=== PATIENT | male | born 1960 | race Caucasian/White ===

== ENCOUNTER 2017-02-01 16:40 | Inpatient (IN) | payer OTHER ==
[~2017-02-01] VITALS: Ht 185.4 cm; Wt 147.4 kg
[2017-02-01] VITALS (10 sets, daily range): BP systolic 110–176; BP diastolic 55–87; PULSE 82–120; RESP 15–22; TEMP 97.8–99.2; O2SAT 97–99
[~2017-02-01 16:40] MED LIST: ASPI81TA82 PO; BENI20TA26 PO; CODOIL PO; FISH1000 PO; GARL500C5 PO; HYDR10SO PO; OMEP20TA PO; PRAV40TA PO; TAB-TAB PO; TRIL135C PO; VIT250TA PO; ZOLP10TA3 PO
[2017-02-01] MEDS ORDERED: OMEP40CA2 PO (16:59)
[2017-02-01] MEDS ORDERED: LISI30TA4 PO (16:59)
[2017-02-01] MEDS ORDERED: SODIUM CHLORIDE 0.9% FLUSH 10 ML FLUSH IVF PRN (17:00)
[2017-02-01] MEDS ORDERED: SODIUM CHLORID 0.9% 500 ML INJ 500 ML IV ONE (17:00)
[2017-02-01] MEDS ORDERED: NITROGLYCERIN 2% OINT 1 GM PACKET TOP ONE (17:00)
[2017-02-01] MEDS ORDERED: MORPHINE SULFATE 4 MG/ML INJ IV PUSH ONE (17:00)
[2017-02-01] MEDS ORDERED: ASPIRIN 81 MG CHEW TAB PO ONE (17:00)
--- NOTE | 2017-02-01 17:10 | PD ---
HPI Chief Complaint: chest pain Time Seen by Provider: 16:52 Travel History International Travel<30 days: No Contact w/Intl Traveler<30days: No Traveled to known affect area: No History of Present Illness HPI 56-year-old male presents to emergency department after reportedly having a nuclear stress test at [facility]. He states he was told he could leave and then received a call from the facility stating that he had a positive stress test, and they recommended he be seen in the emergency department immediately so he came here. Patient states that he has been having intermittent chest pain and neck pain for the past several weeks. Patient is supposed to be taking aspirin daily but doesn't always take it, he also takes blood pressure medication and cholesterol medication. He states he has never had cardiac surgery or angiogram in the past. Patient states he was having neck pain after leaving the [facility] imaging, but currently states he feels somewhat short of breath and weak but otherwise is pain-free. He states both legs feel rubbery, and upper arms feel weak as well. He denies nausea, vomiting, heartburn or other constitutional symptoms. He is a smoker who is trying to quit. He has no known drug allergies. [facility] Social History Alcohol Use: Yes Tobacco Use: Yes Substance Use: No Allergies-Medications (Allergen,Severity, Reaction): Uncoded Allergies: NKDA (Allergy, 02/22/11) Reported Meds & Prescriptions Reported Meds & Active Scripts Active Reported Lisinopril 30 Mg Tab 30 Mg PO DAILY Omeprazole 40 Mg Cap 40 Mg PO DAILY Review of Systems Except as stated in HPI: all other systems reviewed are Neg General / Constitutional: No: Fever Eyes: No: Visual changes HENT: No: Headaches Cardiovascular: Positive: Chest Pain or Discomfort, Dyspnea on exertion, No: Tachycardia, Diaphoresis Respiratory: Positive: Shortness of Breath Gastrointestinal: No: Abdominal Pain Genitourinary: No: Dysuria Musculoskeletal: No: Pain Skin: No Rash Neurologic: No: Weakness Psychiatric: No: Depression Endocrine: No: Polydipsia Hematologic/Lymphatic: No: Easy Bruising Physical Exam Narrative GENERAL: Moderately obese patient in no obvious distress. SKIN: Warm and dry. Normal color. Normal turgor. No diaphoresis. HEAD: Atraumatic. Normocephalic. EYES: Pupils equal and round. No scleral icterus. No injection or drainage. ENT: No nasal bleeding or discharge. Mucous membranes pink and moist. Pharynx is clear. Airway is patent. NECK: Trachea midline. Supple and nontender. CARDIOVASCULAR: Regular rate and rhythm. No murmurs gallops or rubs appreciated. RESPIRATORY: No accessory muscle use. Clear to auscultation. Breath sounds equal bilaterally. GASTROINTESTINAL: Abdomen soft, non-tender, nondistended. Hepatic and splenic margins not palpable. MUSCULOSKELETAL: Extremities without clubbing, cyanosis, or edema. No obvious deformities. NEUROLOGICAL: Awake and alert. No obvious cranial nerve deficits. Motor grossly within normal limits. Five out of 5 muscle strength in the arms and legs. Normal speech. PSYCHIATRIC: Appropriate mood and affect; insight and judgment normal. Data Data Last Documented VS Vital Signs Date Time Temp Pulse Resp B/P (MAP) Pulse Ox O2 Delivery O2 Flow Rate FiO2 02/01/17 18:36 107 16 146/70 (95) 97 Nasal Cannula 2.00 02/01/17 17:53 98 02/01/17 16:43 99.2 Orders Orders Electrocardiogram (02/01/17 16:56) B-Type Natriuretic Peptide (02/01/17 16:56) Ckmb (Isoenzyme) Profile (02/01/17 16:56) Complete Blood Count With Diff (02/01/17 16:56) Comprehensive Metabolic Panel (02/01/17 16:56) Magnesium (Mg) (02/01/17 16:56) Prothrombin Time / Inr (Pt) (02/01/17 16:56) Act Partial Throm Time (Ptt) (02/01/17 16:56) Troponin I (02/01/17 16:56) Chest, Single Ap (02/01/17 16:56) Ecg Monitoring (02/01/17 16:56) Bilateral Bp Monitoring (02/01/17 16:56) Iv Access Insert/Monitor (02/01/17 16:56) Oximetry (02/01/17 16:56) Oxygen Administration (02/01/17 16:56) Aspirin Chew (Aspirin Chew) (02/01/17 17:00) Morphine Inj (Morphine Inj) (02/01/17 17:00) Nitroglycerin 2% Oint (Nitroglycerin 2% (02/01/17 17:00) Sodium Chloride 0.9% Flush (Ns Flush) (02/01/17 17:00) Sodium Chlorid 0.9% 500 Ml Inj (Ns 500 M (02/01/17 17:00) CKMB (02/01/17 17:15) CKMB% (02/01/17 17:15) Consult Cardiology (02/01/17 ) (Hub Use Only)Inp Phy Cons/Ref (02/01/17 ) Heparin Inj (Heparin Inj) (02/01/17 19:45) Heparin Inj (Heparin Inj) (02/02/17 01:45) Heparin Inj (Heparin Inj) (02/02/17 01:45) Heparin-D5w 25,000 U/250 Ml (Heparin-D5w (02/01/17 19:45) Cbc No Diff, Includes Plts (02/04/17 06:00) Act Partial Throm Time (Ptt) (02/02/17 02:32) Occult Blood (Hemoccult) Stool (02/01/17 19:32) Labs Laboratory Tests Test 02/01/17 17:15 White Blood Count 9.0 TH/MM3 Red Blood Count 5.17 MIL/MM3 Hemoglobin 14.0 GM/DL Hematocrit 41.9 % Mean Corpuscular Volume 81.1 FL Mean Corpuscular Hemoglobin 27.0 PG Mean Corpuscular Hemoglobin Concent 33.3 % Red Cell Distribution Width 15.6 % Platelet Count 292 TH/MM3 Mean Platelet Volume 7.3 FL Neutrophils (%) (Auto) 59.9 % Lymphocytes (%) (Auto) 25.3 % Monocytes (%) (Auto) 9.1 % Eosinophils (%) (Auto) 5.1 % Basophils (%) (Auto) 0.6 % Neutrophils # (Auto) 5.4 TH/MM3 Lymphocytes # (Auto) 2.3 TH/MM3 Monocytes # (Auto) 0.8 TH/MM3 Eosinophils # (Auto) 0.5 TH/MM3 Basophils # (Auto) 0.1 TH/MM3 CBC Comment DIFF FINAL Differential Comment Prothrombin Time 10.5 SEC Prothromb Time International Ratio 1.0 RATIO Activated Partial Thromboplast Time 26.4 SEC Blood Urea Nitrogen 13 MG/DL Creatinine 1.12 MG/DL Random Glucose 132 MG/DL Total Protein 7.7 GM/DL Albumin 3.4 GM/DL Calcium Level 8.8 MG/DL Magnesium Level 1.6 MG/DL Alkaline Phosphatase 98 U/L Aspartate Amino Transf (AST/SGOT) 23 U/L Alanine Aminotransferase (ALT/SGPT) 33 U/L Total Bilirubin 0.2 MG/DL Sodium Level 142 MEQ/L Potassium Level 3.6 MEQ/L Chloride Level 101 MEQ/L Carbon Dioxide Level 30.4 MEQ/L Anion Gap 11 MEQ/L Estimat Glomerular Filtration Rate 68 ML/MIN Total Creatine Kinase 316 U/L Creatine Kinase MB 2.0 NG/ML Creatine Kinase MB % 0.6 % Troponin I LESS THAN 0.02 NG/ML B-Type Natriuretic Peptide LESS THAN 2 PG/ML MDM Medical Decision Making Medical Screen Exam Complete: Yes Emergency Medical Condition: Yes Differential Diagnosis Atypical chest pain. Cardiac syndrome. Angina. SD. Narrative Course Patient appears medically stable at time of exam. EKG shows sinus tachycardia with nonspecific ST changes. Labs ordered including CBC, CMP, cardiac panel. Chest x-ray is ordered. IV access is obtained patient is given 324 mg aspirin by mouth, 1 inch nitroglycerin 2% pace, and 2 mg IV morphine, as well as 4 mg Zofran IV. [facility]. Chest x-ray shows no acute cardiopulmonary findings. CBC is unremarkable. Coagulation studies are unremarkable. CMP is remarkable for a GFR 68, random glucose 132, total creatinine kinase 318 , first troponin is less than 0.02, and proBNP is less than 2. Patient is discussed with Dr. Shook who also recommends speaking to the wood tank builder on-call. The patient was discussed with Dr. Parson's who recommends inpatient admission, and possible catheterization in the morning. Call was placed to hospitalist, and the patient was discussed with Dr. Mcintyre, who agreed to admit the patient Heparin bolus and drip was ordered. Diagnosis Primary Impression: Chest pain due to myocardial ischemia Qualified Codes: I20.9 - Angina pectoris, unspecified Admitting Information Admitting Physician Requests: Admit Condition: Stable Haim Hartman Feb 01, 2017 17:10
[2017-02-01 17:25] LABS: AUTOMATED NEUTROPHIL # 5.4 TH/MM3 (1.8-7.7); BASOPHIL # 0.1 TH/MM3 (0-0.2); BASOPHIL % 0.6 % (0.0-2.0); EOSINOPHIL # 0.5 TH/MM3 (0-0.4); EOSINOPHIL % 5.1 % (0.0-4.0); HEMATOCRIT 41.9 % (39.0-51.0); HEMO FLAGS DIFF FINAL; LYMPH % 25.3 % (9.0-44.0); LYMPHOCYTE # 2.3 TH/MM3 (1.0-4.8); MEAN CELL VOLUME 81.1 FL (80.0-100.0); MEAN CORPUSCULAR HGB CONC 33.3 % (32.0-36.0); MONO % 9.1 % (0.0-8.0); NEUT % 59.9 % (16.0-70.0); PLATELET COUNT 292 TH/MM3 (150-450); RED BLOOD COUNT 5.17 MIL/MM3 (4.50-5.90); RED CELL DISTRIBUTION WIDTH 15.6 % (11.6-17.2)
[2017-02-01 17:36] LABS: APTT (PATIENT) 26.4 SEC (24.3-30.1); PROTHROMBIN TIME - PATIENT 10.5 SEC (9.8-11.6)
[2017-02-01 17:47] LABS: ALT (GPT) 33 U/L (12-78); ANION GAP 11 MEQ/L (5-15); AST (GOT) 23 U/L (15-37); BICARBONATE 30.4 MEQ/L (21.0-32.0); BLOOD UREA NITROGEN 13 MG/DL (7-18); CHLORIDE 101 MEQ/L (98-107); GLOMERULAR FILTRATION RATE 68 ML/MIN (>89); MAGNESIUM 1.6 MG/DL (1.5-2.5); POTASSIUM 3.6 MEQ/L (3.5-5.1); SODIUM (NA) 142 MEQ/L (136-145)
[2017-02-01 17:51] LABS: ALKALINE PHOSPHATASE 98 U/L (45-117); CREATINE KINASE 316 U/L (39-308); TOTAL BILIRUBIN ADULT 0.2 MG/DL (0.2-1.0)
--- NOTE | 2017-02-01 17:53 | RADRPT ---
EXAM DATE/TIME: 02/01/2017 17:24 [place] COMPARISON: No previous studies available for comparison. INDICATIONS : Chest pain. MEDICAL HISTORY : None. SURGICAL HISTORY : None. ENCOUNTER: Initial ACUITY: 1 day PAIN SCORE: 5/10 LOCATION: chest FINDINGS: A single view of the chest demonstrates the lungs to be symmetrically aerated without evidence of mas s, infiltrate or effusion. The cardiomediastinal contours are unremarkable. Osseous structures are intact. CONCLUSION: 1. No acute cardiopulmonary findings. Dougie Nolasco MD on February 01, 2017 at 17:50 Board Certified Radiologist. This report was verified electronically.
--- NOTE | 2017-02-01 19:35 | HHI.HP ---
[facility] Admission Diagnosis Diagnoses: (1) ACS (acute coronary syndrome) Diagnosis: Principal (2) Chest pain Diagnosis: Principal (3) Dehydration Diagnosis: Principal (4) Rhabdomyolysis Diagnosis: Principal (5) HTN (hypertension) Diagnosis: Principal (6) Tobacco abuse Diagnosis: Principal Travel History International Travel<30 Days: No Contact w/Intl Traveler <30 Da: No Traveled to Known Affected Are: No History of Present Illness This is a 56-year-old male w/ a PMH of HTN, COPD and Tobacco Abuse who was referred to the ER by DC secondary to abnormal Stress Test. States he's been having c/o intermittent chest pain for several weeks. Seen at the DC in [facility], s/p Stress Test, called w/ abnormal results and instructed to go to the ER. Reports occasional SOB associated w/ chest pain. On arrival, BP 141/63, HR 120, O2 sat 97% on RA, Temp 99.2. CBC unremarkable. Vern unremarkable except for GFR 68. Troponin negative. CPK 316. INR 1.0. CXR with no acute findings. Dr. Mccall consulted by ER physician, recommended admission for further cardiac intervention. Review of Systems Except as stated in HPI: all other systems reviewed are Neg ROS: 14 point review of systems otherwise negative. Past Family Social History Past Medical History PMH: HTN, COPD and Tobacco Abuse Past Surgical History PAST SURGICAL HISTORY: Appendectomy, Cholecystectomy, Right Knee Surgery Allergies: Uncoded Allergies: NKDA (Allergy, Unknown, 02/01/17) Family History PAST FAMILY HISTORY: Reviewed. No h/o DM or CAD Social History PAST SOCIAL HISTORY: Occasional alcohol. Positive for tobacco. Negative for drugs. Physical Exam Vital Signs Vital Signs Date Time Temp Pulse Resp B/P (MAP) Pulse Ox O2 Delivery O2 Flow Rate FiO2 02/01/17 18:36 107 16 146/70 (95) 97 Nasal Cannula 2.00 02/01/17 17:55 112 15 147/70 (95) 02/01/17 17:53 101 15 158/80 (106) Nasal Cannula 2.00 98 11/17/17 17:03 102 16 176/85 (115) 97 Nasal Cannula 2.00 02/01/17 17:03 82 16 153/70 (97) 98 Nasal Cannula 2.00 176/85 (115) 02/01/17 17:03 97 Nasal Cannula 2.00 02/01/17 17:03 103 16 98 Nasal Cannula 2.00 02/01/17 17:00 82 16 97 02/01/17 16:43 99.2 120 22 141/63 (89) 97 Physical Exam PE: GENERAL: Middle-aged male in no acute distress. HEENT: PERRLA, EOMI. No scleral icterus or conjunctival pallor. No lid lag or facial droop. CARDIOVASCULAR: Regular rate and rhythm. No obvious murmurs to auscultation. No chest tenderness to palpation. RESPIRATORY: No obvious rhonchi or wheezing. Clear to auscultation. Breath sounds equal bilaterally. GASTROINTESTINAL: Abdomen soft, non-tender, nondistended. BS normal. MUSCULOSKELETAL: Extremities without clubbing, cyanosis, or edema. No obvious deformities. NEUROLOGICAL: Awake, alert and oriented x4. No focal neurologic deficits. Moving both upper and lower extremities spontaneously. Laboratory Laboratory Tests Test 02/01/17 17:15 White Blood Count 9.0 Red Blood Count 5.17 Hemoglobin 14.0 Hematocrit 41.9 Mean Corpuscular Volume 81.1 Mean Corpuscular Hemoglobin 27.0 Mean Corpuscular Hemoglobin Concent 33.3 Red Cell Distribution Width 15.6 Platelet Count 292 Mean Platelet Volume 7.3 Neutrophils (%) (Auto) 59.9 Lymphocytes (%) (Auto) 25.3 Monocytes (%) (Auto) 9.1 Eosinophils (%) (Auto) 5.1 Basophils (%) (Auto) 0.6 Neutrophils # (Auto) 5.4 Lymphocytes # (Auto) 2.3 Monocytes # (Auto) 0.8 Eosinophils # (Auto) 0.5 Basophils # (Auto) 0.1 CBC Comment DIFF FINAL Differential Comment Prothrombin Time 10.5 Prothromb Time International Ratio 1.0 Activated Partial Thromboplast Time 26.4 Blood Urea Nitrogen 13 Creatinine 1.12 Random Glucose 132 Total Protein 7.7 Albumin 3.4 Calcium Level 8.8 Magnesium Level 1.6 Alkaline Phosphatase 98 Aspartate Amino Transf (AST/SGOT) 23 Alanine Aminotransferase (ALT/SGPT) 33 Total Bilirubin 0.2 Sodium Level 142 Potassium Level 3.6 Chloride Level 101 Carbon Dioxide Level 30.4 Anion Gap 11 Estimat Glomerular Filtration Rate 68 Total Creatine Kinase 316 Creatine Kinase MB 2.0 Creatine Kinase MB % 0.6 Troponin I LESS THAN 0.02 B-Type Natriuretic Peptide LESS THAN 2 Result Diagram: 02/01/17171402/01/171714 Caprini VTE Risk Assessment Caprini VTE Risk Assessment: Mod/High Risk (score >= 2) Caprini Risk Assessment Model Point Value = 1 Point Value = 2 Point Value = 3 Point Value = 5 Age 41-60 Minor surgery BMI > 25 kg/m2 Swollen legs Varicose veins or History of unexplained or recurrent spontaneous Oral contraceptives or hormone replacement Sepsis (< 1 month) Serious lung disease, including pneumonia (< 1 month) Abnormal pulmonary function Acute myocardial infarction Congestive heart failure (< 1 month) History of inflammatory bowel disease Medical patient at bed rest Age 61-74 Arthroscopic surgery Major open surgery (> 45 min) Laparoscopic surgery (> 45 min) Malignancy Confined to bed (> 72 hours) Immobilizing plaster cast Central venous access Age >= 75 History of VTE Family history of VTE Factor V Leiden Prothrombin [id number] Lupus anticoagulant Anticardiolipin antibodies Elevated serum homocysteine Heparin-induced thrombocytopenia Other congenital or acquired thrombophilia Stroke (< 1 month) Elective arthroplasty Hip, pelvis, or leg fracture Acute spinal cord injury (< 1 month) Prophylaxis Regimen Total Risk Factor Score Risk Level Prophylaxis Regimen 0-1 Low Early ambulation 2 Moderate Order ONE of the following: *Sequential Compression Device (SCD) *Heparin 5000 units SQ BID 3-4 Higher Order ONE of the following medications: *Heparin 5000 units SQ TID *Enoxaparin/Lovenox 40 mg SQ daily (WT < 150 kg, CrCl > 30 mL/min) *Enoxaparin/Lovenox 30 mg SQ daily (WT < 150 kg, CrCl > 10-29 mL/min) *Enoxaparin/Lovenox 30 mg SQ BID (WT < 150 kg, CrCl > 30 mL/min) AND/OR *Sequential Compression Device (SCD) 5 or more Highest Order ONE of the following medications: *Heparin 5000 units SQ TID (Preferred with Epidurals) *Enoxaparin/Lovenox 40 mg SQ daily (WT < 150 kg, CrCl > 30 mL/min) *Enoxaparin/Lovenox 30 mg SQ daily (WT < 150 kg, CrCl > 10-29 mL/min) *Enoxaparin/Lovenox 30 mg SQ BID (WT < 150 kg, CrCl > 30 mL/min) AND *Sequential Compression Device (SCD) Assessment and Plan Problem List: (1) ACS (acute coronary syndrome) ICD Code: I24.9 - Acute ischemic heart disease, unspecified (2) Chest pain ICD Code: R07.9 - Chest pain, unspecified (3) Rhabdomyolysis ICD Code: M62.82 - Rhabdomyolysis (4) Dehydration ICD Code: E86.0 - Dehydration (5) HTN (hypertension) ICD Code: I10 - Essential (primary) hypertension (6) Tobacco abuse ICD Code: Z72.0 - Tobacco use Assessment and Plan A/P: 1. ACS: outpatient Stress Test at [facility] abnormal, pending records, referred to ER for further eval. Initial trop negative, EKG w/ no acute ischemia. Admit to [facility], check serial cardiac enzymes, ASA, Heparin, B-Devendra, Statin. Dr. Mccall consulted by ER physician will eval for further intervention. 2. Chest Pain: Intermittent. Currently chest pain free. NTG/Morphine as needed. CXR w/ no acute findings, images reviewed by me. 3. Rhabdomyolysis: Mild. CPK 316. IVF for hydration, repeat CPK for trend. 4. Dehydration: GFR 68. BUN/Creat normal. IVF for hydration, repeat labs in am. 5. HTN: BP 150-170's while in ER, monitor BP, resume home medications, add Metoprolol. 6. Tobacco Abuse: Pt counselled. Ativan prn if needed. No NicoDerm to avoid vasoconstriction. 7. DVT Prophylaxis: Heparin gtt 8. Social work for d/c planning as needed. 9. Case discussed w/ ER physician at length. Physician Certification 2 Midnight Certification Type: Admission for Inpatient Services Order for Inpatient Services The services are ordered in accordance with Medicare regulations or non- Medicare payer requirements, as applicable. In the case of services not specified as inpatient-only, they are appropriately provided as inpatient services in accordance with the 2-midnight benchmark. Estimated LOS (days): 2 days is the estimated time the patient will need to remain in the hospital, assuming treatment plan goals are met and no additional complications. Post-Hospital Plan: Not yet determined Sury Mcintyre MD Feb 01, 2017 19:35
[2017-02-01] MEDS ORDERED: BISACODYL 10 MG SUPP RECTAL PRN (19:45)
[2017-02-01] MEDS ORDERED: HEPARIN SODIUM - IV 10,000 UNITS/10 ML VIAL IV PUSH ONE (19:45)
[2017-02-01] MEDS ORDERED: MAGNESIUM HYDROXIDE SUSP 30 ML CUP PO PRN (19:45)
[2017-02-01] MEDS ORDERED: ACETAMINOPHEN 325 MG TAB PO PRN (19:45)
[2017-02-01] MEDS ORDERED: SODIUM CHLORIDE 0.9% FLUSH 10 ML FLUSH IV FLUSH PRN (19:45)
[2017-02-01] MEDS ORDERED: SENNOSIDES 8.6 MG TAB PO PRN (19:45)
[2017-02-01] MEDS ORDERED: LACTULOSE SYRUP 20 GM/30 ML CUP PO PRN (19:45)
[2017-02-01] MEDS ORDERED: ONDANSETRON HCL 4 MG/2 ML VIAL IVP PRN (19:45)
[2017-02-01] MEDS: SODIUM CHLOR 0.9% 1000 ML INJ 1,000 ML IV SCH (20:16)
[2017-02-01] MEDS: HEPARIN-D5W 25,000 U/250 ML 250 ML IV PRN (20:53)
[2017-02-01] MEDS: SODIUM CHLORIDE 0.9% FLUSH 10 ML FLUSH IV FLUSH SCH (21:00)
[2017-02-01] MEDS: ACETAMINOPHEN/HYDROcodone 325 MG/5 MG TAB PO PRN (21:45)
[2017-02-01] MEDS: METOPROLOL TARTRATE 25 MG TAB PO SCH (22:24)
[2017-02-02] VITALS (24 sets, daily range): BP systolic 108–158; BP diastolic 66–96; PULSE 68–104; RESP 18–20; TEMP 97.4–98.5; O2SAT 96–99
[2017-02-02 01:16] LABS: CREATINE KINASE 263 U/L (39-308)
[2017-02-02] MEDS ORDERED: HEPARIN SODIUM - IV 10,000 UNITS/10 ML VIAL IV PUSH PRN (01:45)
[2017-02-02 03:44] LABS: AUTOMATED NEUTROPHIL # 3.9 TH/MM3 (1.8-7.7); BASOPHIL # 0.1 TH/MM3 (0-0.2); BASOPHIL % 0.9 % (0.0-2.0); EOSINOPHIL # 0.6 TH/MM3 (0-0.4); EOSINOPHIL % 7.1 % (0.0-4.0); HEMATOCRIT 37.3 % (39.0-51.0); HEMO FLAGS DIFF FINAL; LYMPH % 33.8 % (9.0-44.0); LYMPHOCYTE # 2.6 TH/MM3 (1.0-4.8); MEAN CELL VOLUME 81.3 FL (80.0-100.0); MEAN CORPUSCULAR HEMOGLOBIN 27.3 PG (27.0-34.0); MEAN CORPUSCULAR HGB CONC 33.5 % (32.0-36.0); MONO % 7.8 % (0.0-8.0); NEUT % 50.4 % (16.0-70.0); PLATELET COUNT 243 TH/MM3 (150-450); RED BLOOD COUNT 4.59 MIL/MM3 (4.50-5.90); RED CELL DISTRIBUTION WIDTH 15.3 % (11.6-17.2); WHITE BLOOD COUNT 7.8 TH/MM3 (4.0-11.0)
[2017-02-02 03:55] LABS: APTT (PATIENT) 26.8 SEC (24.3-30.1)
[2017-02-02 04:18] LABS: ALKALINE PHOSPHATASE 81 U/L (45-117); ALT (GPT) 31 U/L (12-78); ANION GAP 8 MEQ/L (5-15); AST (GOT) 18 U/L (15-37); BICARBONATE 26.5 MEQ/L (21.0-32.0); BLOOD UREA NITROGEN 15 MG/DL (7-18); CHLORIDE 104 MEQ/L (98-107); CREATINE KINASE 253 U/L (39-308); GLOMERULAR FILTRATION RATE 95 ML/MIN (>89); POTASSIUM 3.7 MEQ/L (3.5-5.1); SODIUM (NA) 138 MEQ/L (136-145); TOTAL BILIRUBIN ADULT 0.2 MG/DL (0.2-1.0)
[2017-02-02] MEDS: HEPARIN SODIUM - IV 10,000 UNITS/10 ML VIAL IV PUSH PRN ×3 (05:20→22:31)
[2017-02-02] MEDS: SODIUM CHLOR 0.9% 1000 ML INJ 1,000 ML IV SCH (05:31)
[2017-02-02] MEDS: PANTOPRAZOLE SOD 40 MG DELAYED RELEASE TAB PO SCH (08:39)
[2017-02-02] MEDS: LISINOPRIL 10 MG TAB PO SCH (08:40)
[2017-02-02] MEDS: METOPROLOL TARTRATE 25 MG TAB PO SCH ×2 (08:40→21:16)
[2017-02-02] MEDS: SODIUM CHLORIDE 0.9% FLUSH 10 ML FLUSH IV FLUSH SCH ×2 (08:41→21:17)
[2017-02-02] MEDS: DOCUSATE SODIUM 50 MG/SENNA 8.6 MG TAB PO SCH ×2 (08:42→21:16)
[2017-02-02] MEDS ORDERED: PRAVASTATIN SOD 40 MG TAB PO SCH (09:00)
[2017-02-02] MEDS ORDERED: ASPIRIN EC 81 MG TABEC PO SCH (09:00)
--- NOTE | 2017-02-02 09:12 | EKG ---
Date Performed: 02/01/2017 Time Performed: 16:54:27 PTAGE: 56 years EKG: SINUS TACHYCARDIA LOW QRS VOLTAGE IN PRECORDIAL LEADS ABNORMAL RHYTHM ECG NO PREVIOUS TRACING DOCTOR: Rogelio White Interpretating Date/Time 02/02/2017 09:10:49
[2017-02-02] MEDS ORDERED: IOHEXOL 350 MG/ML 10 ML VIAL (for RAD DIAG) IVCONTRAST ONE (10:40)
--- NOTE | 2017-02-02 12:30 | HHI.PR ---
Subjective Remarks This patient is a 56-year-old gentleman that outpatient stress test completed and the results were abnormal. He was instructed to come to the hospital by his verify rep at the [facility]. Patient has intermittent chest discomfort which is improved with rest. He smokes at least a pack a day, he has multiple uncles with premature cardiac disease He has been admitted to the hospital for further evaluation Objective Vitals Vital Signs Date Time Temp Pulse Resp B/P (MAP) Pulse Ox O2 Delivery O2 Flow Rate FiO2 02/02/17 10:00 79 02/02/17 09:05 86 02/02/17 08:00 89 02/02/17 07:15 98.1 97 18 108/66 (80) 97 02/02/17 07:00 80 02/02/17 04:44 98.5 74 18 156/94 (114) 99 02/02/17 04:00 78 02/02/17 03:00 77 02/02/17 02:00 70 02/02/17 01:00 78 02/02/17 00:00 78 02/01/17 23:23 98.5 97 18 110/55 (73) 99 02/01/17 23:00 91 02/01/17 22:24 96 18 165/67 (99) 96 Nasal Cannula 2.00 02/01/17 19:10 97.8 102 20 155/87 (109) 97 Nasal Cannula 2.00 02/01/17 19:10 17 02/01/17 18:36 107 16 146/70 (95) 97 Nasal Cannula 2.00 02/01/17 17:55 112 15 147/70 (95) 02/01/17 17:53 101 15 158/80 (106) Nasal Cannula 2.00 98 02/01/17 17:03 102 16 176/85 (115) 97 Nasal Cannula 2.00 02/01/17 17:03 82 16 153/70 (97) 98 Nasal Cannula 2.00 176/85 (115) 02/01/17 17:03 97 Nasal Cannula 2.00 02/01/17 17:03 103 16 98 Nasal Cannula 2.00 02/01/17 17:00 82 16 97 02/01/17 16:43 99.2 120 22 141/63 (89) 97 I/O 02/01/17 02/01/17 02/01/17 02/02/1702/02/17 11/18/17 07:00 15:00 23:00 07:00 15:00 23:00 Intake Total 500 ml Output Total 250 ml Balance 500 ml -250 ml Intake IV Total 500 ml Output Urine Total 250 ml Chest Tube Drainage Total 0 ml Result Diagram: 02/02/17 0315 02/02/17 0315 Imaging Last Impressions Chest X-Ray 02/01/17 1656 Signed Impressions: Service Date/Time: Wednesday, February 01, 2017 17:24 - CONCLUSION: 1. No acute cardiopulmonary findings. Dougie Nolasco MD Objective Remarks GENERAL: This is a well-nourished, well-developed patient, in no apparent distress. CARDIOVASCULAR: Regular rate and rhythm without murmurs, gallops, or rubs. RESPIRATORY: Clear to auscultation. Breath sounds equal bilaterally. No wheezes , rales, or rhonchi. GASTROINTESTINAL: Abdomen soft, non-tender, nondistended. Normal active bowel sounds MUSCULOSKELETAL: Extremities without clubbing, cyanosis, or edema. NEURO: Alert & Oriented x4 to person, place, time, situation. Moves all ext x4 A/P Problem List: (1) ACS (acute coronary syndrome) ICD Code: I24.9 - Acute ischemic heart disease, unspecified Plan: Patient with abnormal outpatient stress test Likely for cardiac catheterization on Saturday Continue medical management with aspirin, bb, acei, morphine, oxygen, statin, tobacco cessation encouraged Lifestyle modification (2) Chest pain ICD Code: R07.9 - Chest pain, unspecified Plan: May be angina in nature Will follow-up with cardiac catheterization as patient has already had an abnormal stress test (3) Rhabdomyolysis ICD Code: M62.82 - Rhabdomyolysis Plan: Resolved with adequate hydration (4) HTN (hypertension) ICD Code: I10 - Essential (primary) hypertension Plan: continue metoprolol Continue lisinopril for now (5) Leg pain ICD Code: M79.606 - Pain in leg, unspecified Plan: Possibly ischemic in nature, patient with abnormal JIMY Follow-up CTA with runoff Continue aspirin Amarilys Murphy MD Feb 02, 2017 12:30
--- NOTE | 2017-02-02 12:49 | MB ---
cc: ANAND PINA MD DATE OF CONSULTATION: 02/02/2017 REASON FOR CONSULTATION: Chest pain, abnormal stress test. HISTORY OF PRESENT ILLNESS The patient is a very pleasant 56-hour gentleman who is seen at the [facility] who has a history of tobacco abuse, obesity and chest pain. The patient has been complaining of chest pain and lower extremity weakness with pain in his legs while walking over the last several months. He has been somewhat non compliant with the [facility]'s instructions but finally had a stress test done which was mildly abnormal and thus he was sent to the hospital. He has no chest pain currently but had some chest pain yesterday and this has been having intermittently describes a general pressure in the middle of the chest but somewhat vague about the details. He is currently asymptomatic denying any residual chest pain, shortness breath, lightheadedness, dizziness. PAST MEDICAL HISTORY Hypertension Obesity Tobacco abuse. CURRENT MEDICATIONS 1. Aspirin milligrams daily. 2. Pravachol 40 mg a. 3. Lisinopril 30 mg daily. 4. Protonix 40 mg daily. 5. Heparin drip. 6. Lopressor 25 mg q. 12 with. ALLERGIES NO KNOWN DRUG ALLERGIES. PHYSICAL EXAMINATION VITAL SIGNS: Afebrile, pulse 86, respiratory rate 18, BP 108/66 satting 97% on 2 liters. IN GENERAL: Pleasant obese gentleman in no distress. NECK: No JVD. LUNGS: Clear auscultation bilaterally. CARDIOVASCULAR SYSTEM: Regular rate and rhythm. No significant murmurs appreciated. ABDOMEN: Benign. EXTREMITIES: No edema. Pulses are slightly diminished pedal Damian LABORATORY DATA Sodium 38,002.7514, bicarb 26.5, BUN 15, creatinine 0.84, glucose 114, cardiac enzymes are negative x3. INR is 1.0, white count 7.8, hematocrit 37.3, platelets 243. Nuclear stress test performed at the [facility] showed a small partially reversible anterior perfusion defect. AV high performed at the [facility] showed borderline severe peripheral vascular disease. EKG shows sinus rhythm with nonspecific ST changes. IMPRESSION 1. Chest pain with abnormal stress test. His stress test is not terribly impressive but he certainly has risk factors and I suspect he does have significant coronary disease despite the unimpressive stress test. I have discussed this with Dr. Mccall who plans for heart cath on Saturday, or sooner should his clinical condition change. We will keep on heparin drip and other medical therapy for coronary disease. 2. Peripheral arterial disease. The patient likely has severe PAD. I will have him undergo a CTA aorta with runoff to evaluate for that as well. 3. Obesity and tobacco abuse are likely major contributors the above and I have counseled him at length regarding these issues. Further recommendations based on his clinical course. Thank you again for the opportunity to participate this patient's care this dictation MD AUGUSTIN Duran/natalie /9:53 AM /12:49 PM
[2017-02-02 12:54] LABS: APTT (PATIENT) 27.1 SEC (24.3-30.1)
--- NOTE | 2017-02-02 16:09 | EKG ---
Date Performed: 02/02/2017 Time Performed: 03:15:50 PTAGE: 56 years EKG: Sinus rhythm Lateral T wave changes are nonspecific Compared to previous tracing, nonspecific T wave changes have improved Borderline ECG PREVIOUS TRACING : 02/01/2017 22.45 DOCTOR: Rogelio White Interpretating Date/Time 02/02/2017 16:09:00
--- NOTE | 2017-02-02 16:09 | EKG ---
Date Performed: 02/01/2017 Time Performed: 22:45:28 PTAGE: 56 years EKG: Sinus tachycardia Possible anterior infarct - age undetermined Low QRS voltages in precordi al leads Nonspecific T wave changes, which are new compared to previous tracing Abnormal ECG PREVIOUS TRACING : 02/01/2017 16.54 DOCTOR: Rogelio White Interpretating Date/Time 02/02/2017 16:08:44
--- NOTE | 2017-02-02 16:15 | RADRPT ---
EXAM DATE/TIME: 02/02/2017 10:26 [place] COMPARISON: No previous studies available for comparison. INDICATIONS : Lower extremity pain; evaluate for occlusion. IV CONTRAST: 75 cc Omnipaque 350 (iohexol) IV RADIATION DOSE: 11.28 CTDIvol (mGy) MEDICAL HISTORY : Hypertension. SURGICAL HISTORY : Appendectomy. Cholecystectomy. ENCOUNTER: Initial ACUITY: 1 day PAIN SCALE: 5/10 LOCATION: Bilateral lower extrimety. TECHNIQUE: Volumetric scanning was performed using a multi-row detector CT scanner. The data was post processed with a variety of visualization algorithms including full volume maximum intensity projection, multi -planar sliding thin slab reformation, curved planar reformation, and surface rendering techniques. Using automated exposure control and adjustment of the mA and/or kV according to patient size, radiat ion dose was kept as low as reasonably achievable to obtain optimal diagnostic quality images. DICO M format image data is available electronically for review and comparison. FINDINGS: ABDOMINAL AORTA: The lumen is smooth without significant narrowing or aneurysmal dilation. The proximal celiac and jackson perior mesenteric arteries are patent and normal in diameter. Calcific plaquing is noted at the origi n of the celiac artery and hepatic artery which arises directly off the aortic arch. Scattered athero sclerotic calcification of the aorta is noted. There are solitary renal arteries bilaterally without gross abnormality. BIFURCATION: There is severe focal stenosis at the origin of the right common iliac artery and moderate to severe stenosis at the origin of the left common iliac artery. RIGHT PELVIS: The right internal iliac, and external iliac vessels are patent with scattered atherosclerotic calcif ications. LEFT PELVIS: The left internal iliac, and external iliac vessels are patent with scattered atherosclerotic calcifi cations. RIGHT THIGH: The superficial femoral and profunda vessels are patent without luminal irregularity. Scattered calci fic plaquing of the superficial femoral artery. LEFT THIGH: The superficial femoral and profunda vessels are patent without luminal irregularity. Scattered calci fic plaquing of the superficial femoral artery. RIGHT KNEE: The distal femoral and popliteal arteries are patent without luminal irregularity. LEFT KNEE: The distal femoral and popliteal arteries are patent without luminal irregularity. RIGHT LEG: The trifurcation is intact. LEFT LEG: The trifurcation is intact. CONCLUSION: 1. Severe stenosis at the origin of the right common iliac artery and moderate to severe stenosis at the origin of the left common iliac artery. 2. Otherwise no high-grade stenosis is seen. 3. Incidental note is made of hepatic steatosis. Sridhar Conway MD on February 02, 2017 at 16:09 Board Certified Radiologist. This report was verified electronically.
[2017-02-02] MEDS: ACETAMINOPHEN/HYDROcodone 325 MG/5 MG TAB PO PRN ×2 (19:47→23:56)
[2017-02-02] MEDS: HEPARIN-D5W 25,000 U/250 ML 250 ML IV PRN (19:55)
[2017-02-02 21:24] LABS: APTT (PATIENT) 28.7 SEC (24.3-30.1)
[2017-02-03] VITALS (24 sets, daily range): BP systolic 147–164; BP diastolic 84–93; PULSE 65–98; RESP 18–22; TEMP 97.3–98.3; O2SAT 97–98
[2017-02-03] MEDS: ACETAMINOPHEN/HYDROcodone 325 MG/5 MG TAB PO PRN ×4 (03:50→21:09)
[2017-02-03 07:33] LABS: BICARBONATE 25.8 MEQ/L (21.0-32.0); POTASSIUM 3.9 MEQ/L (3.5-5.1)
[2017-02-03 08:11] LABS: APTT (PATIENT) 28.7 SEC (24.3-30.1)
[2017-02-03] MEDS: SODIUM CHLORIDE 0.9% FLUSH 10 ML FLUSH IV FLUSH SCH ×2 (09:00→20:03)
[2017-02-03] MEDS: HEPARIN SODIUM - IV 10,000 UNITS/10 ML VIAL IV PUSH PRN ×2 (09:35→18:51)
[2017-02-03] MEDS: METOPROLOL TARTRATE 25 MG TAB PO SCH ×2 (09:36→20:03)
[2017-02-03] MEDS: ATORVASTATIN 40 MG TAB PO SCH (09:36)
[2017-02-03] MEDS: ASPIRIN 325 MG TAB PO SCH (09:36)
[2017-02-03] MEDS: DOCUSATE SODIUM 50 MG/SENNA 8.6 MG TAB PO SCH ×2 (09:36→20:03)
[2017-02-03] MEDS: PANTOPRAZOLE SOD 40 MG DELAYED RELEASE TAB PO SCH (09:36)
[2017-02-03] MEDS: LISINOPRIL 10 MG TAB PO SCH (09:38)
--- NOTE | 2017-02-03 09:49 | PD.CARD.PN ---
Subjective Subjective Remarks Pt c/o back and leg pain, no cp Objective Medications Current Medications Medications (Trade) Dose Ordered Sig/Zohra Route Start Time Stop Time Status Last Admin (Heparin Inj) 5,000 units UNSCH PRN IV PUSH 02/02/17 01:45 (Heparin Inj) 2,500 units UNSCH PRN IV PUSH 02/02/17 01:45 02/03/17 09:35 Heparin Sodium/ Dextrose 250 ml @ 10 mls/hr TITRATE PRN IV 02/01/17 19:45 02/02/17 19:55 (Lopressor) 25 mg Q12HR PO 02/01/17 21:00 02/03/17 09:36 (NS Flush) 2 ml UNSCH PRN IV FLUSH 02/01/17 19:45 (NS Flush) 2 ml BID IV FLUSH 02/01/17 21:00 02/03/17 09:00 (Zofran Inj) 4 mg Q6H PRN IVP 02/01/17 19:45 (Tylenol) 650 mg Q6H PRN PO 02/01/17 19:45 ([place] 5-325 Mg) 1 tab Q4H PRN PO 02/01/17 19:45 02/03/17 09:36 (Morphine Inj) 2 mg Q3H PRN IV PUSH 02/01/17 19:45 (Cori-Colace) 1 tab BID PO 02/01/17 21:00 02/03/17 09:36 (Senokot) 17.2 mg Q12H PRN PO 02/01/17 19:45 (Prinivil) 30 mg DAILY PO 02/02/17 09:00 02/03/17 09:38 (Protonix) 40 mg DAILY PO 02/02/17 09:00 02/03/17 09:36 (Xanax) 0.5 mg Q8H PRN PO 02/02/17 12:30 (Aspirin) 325 mg DAILY PO 02/03/17 09:00 02/03/17 09:36 (Lipitor) 40 mg DAILY PO 02/03/17 09:00 02/03/17 09:36 Vital Signs / I&O Vital Signs Date Time Temp Pulse Resp B/P (MAP) Pulse Ox O2 Delivery O2 Flow Rate FiO2 02/03/17 07:28 77 02/03/17 07:28 97.3 77 20 164/85 (111) 97 02/03/17 06:00 72 02/03/17 05:00 72 02/03/17 04:00 72 02/03/17 03:45 83 18 147/85 (105) 98 02/03/17 03:00 68 02/03/17 02:00 72 02/03/17 01:00 66 02/03/17 00:00 82 18 150/84 (106) 98 02/03/17 00:00 76 02/02/17 23:00 82 02/02/17 22:00 72 02/02/17 21:00 78 02/02/17 20:00 82 02/02/17 19:45 97.7 84 18 157/84 (108) 96 02/02/17 19:00 82 02/02/17 18:00 98 02/02/17 17:00 96 02/02/17 16:00 104 02/02/17 16:00 104 02/02/17 15:09 80 02/02/17 15:09 97.6 81 20 158/87 (110) 97 02/02/17 14:02 68 02/02/17 13:07 77 02/02/17 12:42 73 02/02/17 12:42 97.4 81 18 141/96 (111) 99 02/02/17 10:00 79 I/O 02/02/17 02/02/17 02/02/17 02/03/17 02/03/17 02/03/17 07:00 15:00 23:00 07:00 15:00 23:00 Intake Total 1210 ml 240 ml Output Total 250 ml 950 ml 925 ml Balance -250 ml 260 ml -685 ml Intake Oral 900 ml 240 ml IV Total 310 ml Output Urine Total 250 ml 950 ml 925 ml Chest Tube Drainage Total 0 ml # Bowel Movements 1 Physical Exam Administered Medications Medications (Trade) Dose Ordered Sig/Zohra Route PRN Reason Start Time Stop Time Status Last Admin Dose Admin Heparin Sodium (Porcine) (Heparin Inj) 2,500 units UNSCH PRN IV PUSH APTT 25 TO 39 02/02/17 01:45 02/03/17 09:35 Heparin Sodium/ Dextrose 250 ml @ 10 mls/hr TITRATE PRN IV Coagulation Management 02/01/17 19:45 02/02/17 19:55 Metoprolol Tartrate (Lopressor) 25 mg Q12HR PO 02/01/17 21:00 02/03/17 09:36 Sodium Chloride (NS Flush) 2 ml BID IV FLUSH 02/01/17 21:00 02/03/17 09:00 Acetaminophen/ Hydrocodone Bitart ([place] 5-325 Mg) 1 tab Q4H PRN PO PAIN SCALE 3 TO 5 02/01/17 19:45 02/03/17 09:36 Senna/Docusate Sodium (Cori-Colace) 1 tab BID PO 02/01/17 21:00 02/03/17 09:36 Lisinopril (Prinivil) 30 mg DAILY PO 02/02/17 09:00 02/03/17 09:38 Pantoprazole Sodium (Protonix) 40 mg DAILY PO 02/02/17 09:00 02/03/17 09:36 Aspirin (Aspirin) 325 mg DAILY PO 02/03/17 09:00 02/03/17 09:36 Atorvastatin Calcium (Lipitor) 40 mg DAILY PO 02/03/17 09:00 02/03/17 09:36 Laboratory Laboratory Tests Test 02/02/17 12:25 02/02/17 20:35 02/03/17 06:48 02/03/17 07:56 Activated Partial Thromboplast Time 27.1 SEC 28.7 SEC 28.7 SEC Blood Urea Nitrogen 10 MG/DL Creatinine 0.76 MG/DL Random Glucose 125 MG/DL Calcium Level 8.6 MG/DL Sodium Level 137 MEQ/L Potassium Level 3.9 MEQ/L Chloride Level 104 MEQ/L Carbon Dioxide Level 25.8 MEQ/L Anion Gap 7 MEQ/L Estimat Glomerular Filtration Rate 106 ML/MIN Imaging Last Impressions Aorta w/Runoff CTA 02/02/17 0000 Signed Impressions: Service Date/Time: Thursday, February 02, 2017 10:26 - CONCLUSION: 1. Severe stenosis at the origin of the right common iliac artery and moderate to severe stenosis at the origin of the left common iliac artery. 2. Otherwise no high-grade stenosis is seen. 3. Incidental note is made of hepatic steatosis. Sridhar Conway MD Chest X-Ray 02/01/17 9649 Signed Impressions: Service Date/Time: Wednesday, February 01, 2017 17:24 - CONCLUSION: 1. No acute cardiopulmonary findings. Dougie Nolasco MD Assessment and Plan Problem List: (1) PAD (peripheral artery disease) ICD Codes: I73.9 - Peripheral vascular disease, unspecified Plan: will ask Dr. Pride to take a look, ? correction inpt vs outpt at [facility] (2) Leg pain ICD Codes: M79.606 - Pain in leg, unspecified (3) Chest pain ICD Codes: R07.9 - Chest pain, unspecified Plan: w/ abnl stress; dr. finney to cath tomorrow (4) Tobacco abuse ICD Codes: Z72.0 - Tobacco use Plan: counseled at length Osvaldo Cuellar MD Feb 03, 2017 09:49
--- NOTE | 2017-02-03 10:40 | HHI.PR ---
Subjective Remarks patient seen in room, complaining of back pain related to the bed and position overnight. 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 Objective Vitals Vital Signs Date Time Temp Pulse Resp B/P (MAP) Pulse Ox O2 Delivery O2 Flow Rate FiO2 02/03/17 07:28 77 02/03/17 07:28 97.3 77 20 164/85 (111) 97 02/03/17 06:00 72 02/03/17 05:00 72 02/03/17 04:00 72 02/03/17 03:45 83 18 147/85 (105) 98 02/03/17 03:00 68 02/03/17 02:00 72 02/03/17 01:00 66 02/03/17 00:00 82 18 150/84 (106) 98 02/03/17 00:00 76 02/02/17 23:00 82 02/02/17 22:00 72 02/02/17 21:00 78 02/02/17 20:00 82 02/02/17 19:45 97.7 84 18 157/84 (108) 96 02/02/17 19:00 82 02/02/17 18:00 98 02/02/17 17:00 96 02/02/17 16:00 104 02/02/17 16:00 104 02/02/17 15:09 80 02/02/17 15:09 97.6 81 20 158/87 (110) 97 02/02/17 14:02 68 02/02/17 13:07 77 02/02/17 12:42 73 02/02/17 12:42 97.4 81 18 141/96 (111) 99 I/O 02/02/17 02/02/17 02/02/17 02/03/17 02/03/17 02/03/17 07:00 15:00 23:00 07:00 15:00 23:00 Intake Total 1210 ml 240 ml Output Total 250 ml 950 ml 925 ml Balance -250 ml 260 ml -685 ml Intake Oral 900 ml 240 ml IV Total 310 ml Output Urine Total 250 ml 950 ml 925 ml Chest Tube Drainage Total 0 ml # Bowel Movements 1 Result Diagram: 02/02/175 02/03/17 0648 Objective Remarks GENERAL: This is a well-nourished, well-developed patient, in no apparent distress. CARDIOVASCULAR: Regular rate and rhythm without murmurs, gallops, or rubs. RESPIRATORY: Clear to auscultation. Breath sounds equal bilaterally. No wheezes , rales, or rhonchi. GASTROINTESTINAL: Abdomen soft, non-tender, nondistended. Normal active bowel sounds MUSCULOSKELETAL: Extremities without clubbing, cyanosis, or edema. NEURO: Alert & Oriented x4 to person, place, time, situation. Moves all ext x4 A/P Problem List: (1) ACS (acute coronary syndrome) ICD Code: I24.9 - Acute ischemic heart disease, unspecified Plan: Patient with abnormal outpatient stress test for cardiac catheterization on Saturday am Continue medical management with aspirin, bb, acei, morphine, oxygen, statin, tobacco cessation encouraged Lifestyle modification (2) Chest pain ICD Code: R07.9 - Chest pain, unspecified Plan: May be angina in nature Will follow-up with cardiac catheterization as patient has already had an abnormal stress test (3) Rhabdomyolysis ICD Code: M62.82 - Rhabdomyolysis Plan: Resolved with adequate hydration (4) HTN (hypertension) ICD Code: I10 - Essential (primary) hypertension Plan: continue metoprolol Continue lisinopril for now (5) Leg pain ICD Code: M79.606 - Pain in leg, unspecified Plan: ischemic in nature, patient with abnormal JIMY severe iliac stenosis on CTA with runoff, cards aware Continue aspirin Amarilys Murphy MD Feb 03, 2017 10:40
[2017-02-03] MEDS ORDERED: diphenhydrAMINE HCL 50 MG CAP PO SCH (10:45)
[2017-02-03] MEDS ORDERED: DIAZEPAM 10 MG TAB PO SCH (10:45)
[2017-02-03] MEDS ORDERED: MIDAZOLAM HCL 2 MG/2 ML VIAL IV PUSH SCH (10:45)
--- NOTE | 2017-02-03 11:29 | MB ---
cc: ARNULFO WELLS M.D. DATE OF CONSULTATION: 02/03/2017 REASON FOR CONSULTATION: Cardiac catheterization HISTORY OF PRESENT ILLNESS: The patient is a 56-year-old white male with a history of hypertension, hyperlipidemia who was advised to go to the hospital after a nuclear stress test done by the [facility] was found to be abnormal. The patient states for the past several weeks he has had some intermittent substernal chest discomforts described as "heartburn" usually without associated shortness of breath, nausea or diaphoresis. Many of these episodes have occurred at rest or with minimal exertion. The nuclear stress test done by the [facility] reportedly showed a small area of anterior ischemia. Chronically he has mild to moderate dyspnea on exertion. He denies pleurisy, pedal edema, lightheadedness, syncope, near-syncope, palpitations, paroxysmal nocturnal dyspnea. The patient also complains of gradually worsening bilateral lower extremity discomfort with exertion. PAST MEDICAL HISTORY 1. Hypertension 2. Hyperlipidemia. CURRENT CARDIAC MEDICATIONS 1. Aspirin 325 mg p.o. daily 2. Atorvastatin 40 mg p.o. daily. 3. Lisinopril 30 mg p.o. daily. 4. Metoprolol tartrate 25 mg p.o. q.12 hours. 5. Heparin drip. ALLERGIES NO KNOWN DRUG ALLERGIES. FAMILY HISTORY There is no significant family history of early myocardial infarction. SOCIAL HISTORY The patient smokes about a pack of cigarettes per day. He denies drug or alcohol abuse. REVIEW OF SYSTEMS: As in the history of present illness, otherwise negative or noncontributory. He also denies headache, visual changes, unilateral weakness or numbness, abdominal pain, melena, dyspepsia. PHYSICAL EXAMINATION Blood pressure 164/85 with a pulse of 77, respirations 20. GENERAL: He is a well-developed, well-nourished white male in no acute distress. HEENT: Jugular venous pressure is normal. Carotid pulses are 2+ bilaterally and without bruits. CHEST: Examination of the chest reveals unlabored respiratory effort with diminished breath sounds diffusely. CARDIAC: He has a regular rhythm and rate without S3-S4 or murmur. ABDOMEN: On abdominal examination he has a soft, obese, nontender abdomen. Bowel sounds are present. There is no definite hepatosplenomegaly. EXTREMITIES: Examination of the extremities reveals no clubbing, cyanosis or edema. LABORATORY DATA: Laboratory data includes WBC 7.8, hemoglobin 12.5, platelets 243, potassium 3.9, BUN 10, creatinine 0.76, negative cardiac enzymes. IMAGING STUDIES: Chest x-ray: Shows no acute disease. CT angiogram of the lower extremities shows severe stenosis at the origin of the right common iliac artery and moderate to severe stenosis at the origin of the left common iliac artery. EKG shows sinus rhythm, septal infarct, age undetermined, nonspecific lateral T-wave abnormalities. IMPRESSION Ongoing chest pains, abnormal nuclear stress test in this 56-year-old white male with a history of hypertension, hyperlipidemia. I have been asked to consider the patient for cardiac catheterization. At this point I would agree with the need for coronary angiography. Although his nuclear stress test images are minimally abnormal, he has had a considerable amount of chest discomforts in the last few weeks, often at rest. He also has risk factors for coronary disease. The nature of cardiac catheterization and potential risks including but not limited to , myocardial infarction, stroke, arrhythmia, bleeding, infection, renal failure have been outlined to the patient. He agrees to proceed. RECOMMENDATIONS Cardiac catheterization tomorrow morning. MD LOVE Chun/SALVATORE /10:45 AM /11:28 AM MTDD
[2017-02-03] MEDS: HEPARIN-D5W 25,000 U/250 ML 250 ML IV PRN (17:05)
[2017-02-03 17:58] LABS: APTT (PATIENT) 27.3 SEC (24.3-30.1)
[2017-02-03] MEDS: ALPRAZolam 0.5 MG TAB PO PRN (20:02)
[2017-02-03] MEDS: MORPHINE SULFATE 2 MG/ML INJ IV PUSH PRN ×2 (20:03→23:13)
[2017-02-03] MEDS: SODIUM CHLOR 0.9% 1000 ML INJ 1,000 ML IV SCH (20:43)
[2017-02-03] MEDS: ZOLPIDEM TARTRATE 10 MG TAB PO PRN (23:13)
[2017-02-04] VITALS (25 sets, daily range): BP systolic 142–155; BP diastolic 68–84; PULSE 67–91; RESP 18–22; TEMP 97.3–98.4; O2SAT 93–97
[2017-02-04 01:11] LABS: APTT (PATIENT) 51.6 SEC (24.3-30.1)
[2017-02-04] MEDS: SODIUM CHLOR 0.9% 1000 ML INJ 1,000 ML IV SCH ×2 (01:30→14:20)
[2017-02-04] MEDS: MORPHINE SULFATE 2 MG/ML INJ IV PUSH PRN ×3 (02:59→20:28)
[2017-02-04] MEDS: ALPRAZolam 0.5 MG TAB PO PRN (03:46)
[2017-02-04] MEDS: ACETAMINOPHEN/HYDROcodone 325 MG/5 MG TAB PO PRN ×3 (03:46→19:31)
[2017-02-04] MEDS ORDERED: HEPARIN-NS/PF INJ 1,000 ML ONE (07:09)
[2017-02-04] MEDS ORDERED: HEPARIN SODIUM - IV 10,000 UNITS/10 ML VIAL ONE (07:18)
[2017-02-04] MEDS ORDERED: VERAPAMIL HCL 5 MG/2 ML VIAL ONE (07:18)
[2017-02-04] MEDS ORDERED: MIDAZOLAM HCL 2 MG/2 ML VIAL ONE (07:26)
--- NOTE | 2017-02-04 08:21 | CATHPROC ---
[facility] HIS Report Study Information Study Number Admission Scheduled Start Study Start [id number] Feb 01 2017 7:38PM 02/03/2017 Feb 04 2017 7:03AM [place] Service Cardiac Catheterization Admit Source Facility Department Emergency department [facility] - Roaster Operator Physician and Clinical Staff Initial Jack Woods Commercial Management Accountantalex Cordoba RN, Elaina Ko,RT(R) Scrub Greg Hernandez RCIS(BS) Procedures Performed Procedure Location (Site) Vessel Name Angiogram LV LV Ventricle Coronary Angiograms LCA Left Coronary Coronary Angiograms RCA Right Coronary L Heart Cath Wire insertion Radial (right) Radial Art. Equipment Time Gang Head Saw Operator Description Size Mfg Part Number Used/Scraped TRANSDUCER, TRUWAVE [id number] 07:17 MCDUFFIE SERRANO * Used W/STOCKCOCK *[id number] [id number] *[id number] [id number] *[id number] PIGTAIL ANG. 145 INFINITI [id number] CATHETER *[id number] [id number] *[id number] 07:17 MALLINCKRODT SYRINGE, ANGIOMAT 150ML 150ML *[id number] Used [facility] [employer] CONCEPT DRAPE, RADIAL FEMORAL FULL 07:17 * [id number] *[id number] Used DEVELOPMENT BODY [id number] 07:17 [employer] PACK, CCL CUSTOM * Used *[id number] 07:17 [employer] SUPPORT, ARTERIAL ADULT 36020 *[id number] Used [id number] 07:17 [employer] PACER PEN, SKIN DUAL W/ RULER * Used *[id number] SHEATH, FR6 RADIAL PRELUDE 07:17 [employer] FR 6 [id number] Used EASE 11CM [id number] 07:17 [employer] WIRE, EXCHANGE 260CM 3MMJ 260CM Used *[id number] 07:17 NAMIC MANIFOLD, 4 PORT * Used *[id number] 07:17 [employer]ED OMNIPAQUE, 350 MG, 150ML 150ML [id number] Used [id number] 07:17 [employer] BLANKET,WARM AIR CCL * Used *[id number] CATHETER, FR5 OPTITORQUE [id number] 07:19 [email or web address] MEDICAL FR 5 Used RADIAL TIG 4.0 *[id number] History: Current Medications Medication Dosage/Unit Route Frequency Last Date/Time Taken Statins (any) 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 History: Allergies Allergy Reaction NKDA History: Risk Factors Family History of Hypertension Dyslipidemia Previous TX Previous Heart Failure Premature CAD Yes Yes No No No Prior Valve Prior PCI Prior CABG Surgery No No No Cerebrovascular Peripheral Artery Chronic Lung On Dialysis Diabetes Disease Disease Disease No No No Yes No History: Symptoms/Diagnosis Selection Items Chest pain SOB History: Stress Tests Stress or Imaging Studies Performed No History: Other Disease Selection Items COPD HTN History: Other Current Smoker Method Packs a Day Years Used Pack Years Yes Cigarettes 1 11 11 Labs Hgb (g/dl) Hct (%) WBC (l/cumm) Platelets (thousands) 11.60-17.00 35.00-51.00 4.00-11.00 150.00-450.00 12.5 37.3 7.8 243 Glucose (mg/dl) BUN (mg/dl) Creatinine (mg/dl) BUN:Creatinine (1:x) 74.00-106.00 7.00-18.00 0.50-1.30 10.00-20.00 125 10 0.7 14.3 INR (PTT:PT) 0.90-1.10 1 Troponin I (ng/ml) CPK (u/l) CPK-MB (ng/ML) 0.02-0.05 26.00-308.00 0.50-3.60 0.02 253 Not Drawn Medication Medication Total Dose (Bolus/Oral) Medication Total Dosage/Unit 1% XYLOCAINE 20 mL FENTANYL 100 mcg VERSED 2 mg Medications (Bolus/Oral) Medication Time Given Dosage/Unit Administered By Reason VERSED 02/04/2017 7:40:05 AM 2 mg Varinder Cordoba RN 2 mg VERSED given in lab by Varinder Cordoba RN in Right Antecubital via Peripheral IV. Ordered by Jack Mccall. 1% XYLOCAINE 02/04/2017 7:40:53 AM 20 mL Jack Mccall 20 mL 1% XYLOCAINE given in lab by Jack Mccall in Right Radial via Subcutaneous. FENTANYL 02/04/2017 7:49:55 AM 50 mcg Varinder Cordoba RN 50 mcg FENTANYL given in lab by Varinder Cordoba RN in Right Antecubital via Peripheral IV. Ordered by Jack Wilson. FENTANYL 02/04/2017 8:10:50 AM 50 mcg Varinder Cordoba RN 50 mcg FENTANYL given in lab by Varinder Cordoba RN in Right Antecubital via Peripheral IV. Ordered by Jack Wilson. Medication (Drip) Medication Time Given Dosage/Unit Concentration/Unit Diluent (ml) Solution IV Solutions 02/04/2017 7:04:04 AM 50 mL (IV) NaCl .9 IV Solutions given in lab by Varinder Cordoba RN in Right Antecubital via Peripheral IV. Pump/Drip Flow u sing NaCl .9. Initial Case Assessment Cardiovascular Rhythm NIBP Chest Pain SR 169/86 0 Skin color Skin Normal Warm Dry Circulatory - Right Pulses Dorsalis Pedis Femoral Radial d 1 2 Scale (0,1,2,3,4,d) Scale (0,1,2,3,4,d) Neurological State Oriented to time-place- Alert Moves all extremities person Respiration - General Respiration Rate SpO2 (%) (B/min) 11 95 Chronological Log Time Study Chronological Log 7:03:34 Patient arrived via Bed. 7:03:41 Patient Name, D.O.B, / Armband Verified By R.N. 7:03:43 Consent signed by the physician and the patient and verified by the Roaster Operator staff. 7:03:43 Pre-op and post- op instructions given; patient acknowledges understanding of instructions. 7:03:44 Verbal Stimulation=1 Physical Stimulation=2 Airway=2 Respiration=2 TOTAL=7. (0=absent, 1=fontenot ited, 2=present) 7:03:49 Allens test performed on the right radial and ulnar artery. 7:03:55 Patient has been NPO for More than 6Hrs. 7:03:56 Skin Breakdown- none per pt 7:03:59 Patient Warmer Placed on the Table. 7:04:01 John Prominences Protected 7:04:03 A # 20 IV was noted in the Antecubital (right). Grade = 0 7:04:04 IV Solutions given in lab by Varinder Cordoba RN in Right Antecubital via Peripheral IV. Pump/Dr ip Flow using NaCl .9. 7:04:08 History and physical on the chart or being dictated. Assessment: Initial Case, Rhythm=SR, YOBZ=732/86 mmhg, Chest Pain=0, Color=Normal, Skin = Warm, Dry Right Pulses: Kayden Ped=d, Femoral=1, Radial=2 7:04:09 Neurological: State=Alert, Ox3, HUBER Respiration: Resp=11 B/min, SpO2=95 % Vitals capture started with the following parameters, Patient=Adult, Interval=5 min, Initial Pre [place]=870 mmHg, 7:11:48 Deflation Rate=5 mmHg, Cuff placed on Left Arm 7:13:11 HR=65 bpm, DKKO=546/86 mmhg, SpO2=95.0 %, Resp=11 B/min, Pain=0, Archie=9, Gleason=3 7:17:29 HR=73 bpm, QVJR=855/103 mmhg, SpO2=96.0 %, Resp=12 B/min, Pain=0, Archie=9, Gleason=3 7:18:11 Reference ECG taken 7:20:03 Bilateral groins prepped with 2% chlorhexidine, and draped after a 3 minute waiting time. 7:22:15 MD paged 7:22:26 HR=70 bpm, FJSG=590/97 mmhg, SpO2=99.0 %, Resp=10 B/min, Pain=0, Archie=9, Gleason=3 7:22:27 Pressure channel 1 zeroed. 7:27:27 HR=73 bpm, BTXV=945/90 mmhg, SpO2=99.0 %, Resp=9 B/min, Pain=0, Archie=9, Gleason=2 7:32:28 HR=67 bpm, WGEM=697/90 mmhg, SpO2=93.0 %, Resp=12 B/min, Pain=0, Archie=9, Gleason=2 7:37:29 HR=63 bpm, SAHP=995/85 mmhg, SpO2=94.0 %, Resp=12 B/min, Pain=0, Archie=9, Gleason=2 Time Out. Correct patient, correct procedure, correct physician, power injector loaded, or not l oaded with contrast with 7:39:00 surgical team present. Time Out Concurred by MD and individual staff in procedure. 7:40:05 2 mg VERSED given in lab by Varinder Cordoba RN in Right Antecubital via Peripheral IV. Ordered by Jack Mccall. 7:40:33 Case Start 7:40:53 20 mL 1% XYLOCAINE given in lab by Jack Mccall in Right Radial via Subcutaneous. 7:41:37 Access site was Radial Artery. 7:42:26 HR=67 bpm, NMDK=089/88 mmhg, SpO2=92 %, Resp=10 B/min, Pain=0, Archie=9, Gleason=2 A SHEATH, FR6 RADIAL PRELUDE EASE 11CM FR 6 was advanced into the Radial (right) using the Jose Antonio blas 7:42:45 technique. 7:44:05 radial cocktail: verapamil 2.5mg, nitro 200mcg, heparin 2500 units IA Right radial artery A CATHETER, FR5 OPTITORQUE RADIAL TIG 4.0 FR 5 was advanced over a wire. OMNIPAQUE, 350 MG, 150M L 150ML 7:45:09 was used for injections. 7:47:54 UX=690 bpm, OXFN=538/96 mmhg, SpO2=92.0 %, Resp=17 B/min 7:48:05 The LCA was injected and visualized at various angles. OMNIPAQUE, 350 MG, 150ML 150ML used. 7:49:55 50 mcg FENTANYL given in lab by Varinder Cordoba RN in Right Antecubital via Peripheral IV. Orde red by Jack Mccall. 7:50:35 The RCA was injected and visualized at various angles. OMNIPAQUE, 350 MG, 150ML 150ML used. Recorded Pressure: Ao, HR=97, Condition=Condition 1 7:50:45 (Aorta) Ao 147/89/117 7:52:28 HR=92 bpm, SBSG=699/106 mmhg, SpO2=95.0 %, Resp=16 B/min After removing the current catheter a JL 3.5 INFINITI CATHETER FR 6 was advanced over a WIRE, EXCHANGE 260CM 7:54:42 3MMJ 260CM. 7:57:04 A WIRE, EXCHANGE 260CM 3MMJ 260CM was inserted via Radial (right). 7:57:25 Wire removed 7:57:34 HR=89 bpm, LESF=758/103 mmhg, SpO2=94.0 %, Resp=18 B/min After removing the current catheter a JR 5.0 INFINITI CATHETER FR 6 was advanced over a WIRE, EXCHANGE 260CM 8:00:12 3MMJ 260CM. 8:02:33 HR=89 bpm, UURO=319/99 mmhg, SpO2=97.0 %, Resp=15 B/min After removing the current catheter a PIGTAIL STR INFINITI CATHETER FR 6 was advanced over a W SUSANA, EXCHANGE 8:03:37 260CM 3MMJ 260CM. After removing the current catheter a PIGTAIL ANG. 145 INFINITI CATHETER FR 6 was advanced ove r a WIRE, 8:05:10 EXCHANGE 260CM 3MMJ 260CM. Recorded Pressure: LV, HR=83, Condition=Condition 1 8:07:02 (Left Ventricle) LV 157/11/15 8:07:36 HR=84 bpm, AJRD=129/107 mmhg, SpO2=96.0 %, Resp=25 B/min 8:08:30 The LV was injected at 12 cc/sec for a total of 42. OMNIPAQUE, 350 MG, 150ML 150ML used. Recorded Pressure: LV, Ao, HR=84, Condition=Condition 1 8:08:53 (Left Ventricle) LV 89/3/5, (Aorta) Ao 146/79/106 8:09:16 Catheter was removed 8:09:19 Case End 8:09:36 Radial Compression Device Used. 17 mLs of air placed in closure device. Affected hand 96 % O2 saturation. 8:09:46 No case complications noted. 8:10:50 50 mcg FENTANYL given in lab by Varinder Cordoba RN in Right Antecubital via Peripheral IV. Or dered by Jack Mccall. 8:12:41 Bedside Report will be given. 8:12:52 A Left Heart Cath was performed. 8:14:13 HR=75 bpm, VSMI=535/103 mmhg, SpO2=96 %, Resp=7 B/min 8:18:[address] [facility] End Study - Contrast Media Used In Study Contrast Total Opened (mL) Total Used (mL) Total Wasted (mL) Omnipaque 90 90 0 End Study - Maximum Contrast Load Max Contrast Load (mL) 707.8 End Study - Radiation Exposure Fluoro Time (minutes) 12.5 End Study - Patient Disposition Complications Transferred To Interventional Outcome No Telemetry Bed No attempt made
--- NOTE | 2017-02-04 08:30 | MA ---
cc: JACK WELLS M.D. DATE: 02/04/2017 PROCEDURE: Left heart catheterization, selective coronary angiography, left ventriculography. PROCEDURE NOTES: The patient was brought to the Cardiac Catheterization Laboratory in a fasting state after having signed informed consent. The right wrist region was prepped and draped as per policy and anesthetized with 1% lidocaine. Arterial access was obtained with the right radial artery and a 6-Iranian sheath placed. Coronary arteriography was performed using a 6-Iranian Hernán left 3.5 Hernán right 5.0 catheters. Left ventriculogram was done using an angled pigtail catheter. There were no apparent immediate complications. A radial artery compression band was applied to his right wrist at the end of the case to achieve good hemostasis. HEMODYNAMIC DATA: Left ventricle 140 with an end-diastolic pressure of 18. Aorta 146/79 with a mean of 106. There was no significant transvalvular aortic gradient on pullback of the pigtail catheter. CORONARY ARTERIOGRAPHY: The left main is normal. The left anterior descending gives rise to a large diagonal. There is diffuse up to 10% disease in the proximal LAD. The diagonal appears to be free of disease. The left circumflex is a medium-sized vessel giving rise to two small to medium-sized obtuse marginals arising from the mid-vessel. No disease is seen in the left circumflex system. The right coronary is a medium-sized, dominant vessel with minimal luminal irregularities proximally. LEFT VENTRICULOGRAPHY: Contrast injection of the left ventricle reveals no segmental wall motion abnormalities. Ejection fraction is estimated at 60%. CONCLUSIONS: 1. Minimal coronary artery disease. 2. Normal left ventricular function with estimated ejection fraction of 60%. Jack Wells MD GHR/SSB /8:23 AM /8:27 AM
[2017-02-04] MEDS ORDERED: MISC INFORMATION XX ONE (09:30)
[2017-02-04] MEDS ORDERED: IOHEXOL 350 MG/ML 100 ML BTL (for Cath Lab) OTHER ONE (10:10)
[2017-02-04] MEDS: ASPIRIN 325 MG TAB PO SCH (10:33)
[2017-02-04] MEDS: LISINOPRIL 10 MG TAB PO SCH (10:34)
[2017-02-04] MEDS: METOPROLOL TARTRATE 25 MG TAB PO SCH ×2 (10:34→20:29)
[2017-02-04] MEDS: ATORVASTATIN 40 MG TAB PO SCH (10:34)
[2017-02-04] MEDS: PANTOPRAZOLE SOD 40 MG DELAYED RELEASE TAB PO SCH (10:35)
[2017-02-04] MEDS: SODIUM CHLORIDE 0.9% FLUSH 10 ML FLUSH IV FLUSH SCH ×2 (10:35→20:32)
[2017-02-04] MEDS: DOCUSATE SODIUM 50 MG/SENNA 8.6 MG TAB PO SCH ×2 (10:35→20:29)
[2017-02-04 11:56] LABS: HEMATOCRIT 39.1 % (39.0-51.0); MEAN CELL VOLUME 81.5 FL (80.0-100.0); MEAN CORPUSCULAR HEMOGLOBIN 26.5 PG (27.0-34.0); MEAN CORPUSCULAR HGB CONC 32.6 % (32.0-36.0); PLATELET COUNT 244 TH/MM3 (150-450); RED BLOOD COUNT 4.79 MIL/MM3 (4.50-5.90); RED CELL DISTRIBUTION WIDTH 14.9 % (11.6-17.2); REVIEW FLAG FINAL; WHITE BLOOD COUNT 6.6 TH/MM3 (4.0-11.0)
--- NOTE | 2017-02-04 11:56 | HHI.PR ---
Subjective Remarks Patient seen in room in follow-up for atypical chest pain with abnormal stress test as an outpatient. No further chest pain. Catheter that showed minimal cardiac disease and medications are recommended Patient's still has performed a disease which may further followed by cardiology Care plan discussed with certified midwife blood pressure little bit elevated after right radial cardiac catheterization Objective Vitals Vital Signs Date Time Temp Pulse Resp B/P (MAP) Pulse Ox O2 Delivery O2 Flow Rate FiO2 02/04/17 11:00 97.3 89 18 143/84 (103) 93 02/04/17 07:00 88 02/04/17 06:00 91 02/04/17 05:00 84 02/04/17 04:00 Nasal Cannula 2.00 02/04/17 04:00 98.2 70 18 153/79 (103) 97 02/04/17 04:00 70 02/04/17 03:00 68 02/04/17 02:00 69 02/04/17 01:00 72 02/04/17 00:00 67 02/04/17 00:00 98.4 67 20 142/69 (93) 97 02/04/17 00:00 Nasal Cannula 2.00 02/03/17 23:00 65 02/03/17 22:00 69 02/03/17 21:00 81 02/03/17 20:00 76 02/03/17 20:00 98.3 76 22 161/93 (115) 98 02/03/17 20:00 Nasal Cannula 2.00 02/03/17 18:00 78 02/03/17 17:00 82 02/03/17 16:00 86 02/03/17 15:30 80 02/03/17 15:30 98.0 80 22 157/87 (110) 98 02/03/17 14:00 92 02/03/17 13:00 72 02/03/17 12:00 74 I/O 02/03/17 02/03/17 02/03/17 02/04/17 02/04/17 02/04/17 06:59 14:59 22:59 06:59 14:59 22:59 Intake Total 240 ml 913 ml 1030 ml Output Total 925 ml 900 ml 1000 ml Balance -685 ml 13 ml 30 ml Intake Oral 240 ml 800 ml 480 ml IV Total 113 ml 550 ml Output Urine Total 925 ml 900 ml 1000 ml # Bowel Movements 1 0 Result Diagram: 02/02/17 0315 02/03/17 0648 Objective Remarks GENERAL: This is a well-nourished, well-developed patient, in no apparent distress. CARDIOVASCULAR: Regular rate and rhythm without murmurs, gallops, or rubs. RESPIRATORY: Clear to auscultation. Breath sounds equal bilaterally. No wheezes , rales, or rhonchi. GASTROINTESTINAL: Abdomen soft, non-tender, nondistended. Normal active bowel sounds MUSCULOSKELETAL: Extremities without clubbing, cyanosis, or edema. NEURO: Alert & Oriented x4 to person, place, time, situation. Moves all ext x4 A/P Problem List: (1) ACS (acute coronary syndrome) ICD Code: I24.9 - Acute ischemic heart disease, unspecified Plan: Patient with abnormal outpatient stress test (cardiac catheterization shown minimal arterial disease) Continue medical management with aspirin, bb, acei, morphine, oxygen, statin, tobacco cessation encouraged Lifestyle modification (2) Chest pain ICD Code: R07.9 - Chest pain, unspecified Plan: Continue with medical management as per cardiology (3) HTN (hypertension) ICD Code: I10 - Essential (primary) hypertension Plan: Continue metoprolol and lisinopril (4) Leg pain ICD Code: M79.606 - Pain in leg, unspecified Plan: ischemic in nature, patient with abnormal JIMY severe iliac stenosis on CTA with runoff, cards aware Continue aspirin Amarilys Murphy MD Feb 04, 2017 11:56
[2017-02-04] MEDS ORDERED: cloNIDine HCL 0.1 MG TAB PO PRN (12:00)
[2017-02-04 12:02] LABS: APTT (PATIENT) 27.1 SEC (24.3-30.1)
[2017-02-04] MEDS: ZOLPIDEM TARTRATE 10 MG TAB PO PRN (20:40)
[2017-02-05] VITALS (27 sets, daily range): BP systolic 136–154; BP diastolic 60–90; PULSE 71–94; RESP 20; TEMP 97.7–98.6; O2SAT 95–97
[2017-02-05] MEDS: ACETAMINOPHEN/HYDROcodone 325 MG/5 MG TAB PO PRN ×5 (00:30→22:55)
[2017-02-05] MEDS: MORPHINE SULFATE 2 MG/ML INJ IV PUSH PRN ×2 (01:48→09:45)
[2017-02-05] MEDS: LISINOPRIL 10 MG TAB PO SCH (09:43)
[2017-02-05] MEDS: ASPIRIN 325 MG TAB PO SCH (09:44)
[2017-02-05] MEDS: PANTOPRAZOLE SOD 40 MG DELAYED RELEASE TAB PO SCH (09:44)
[2017-02-05] MEDS: DOCUSATE SODIUM 50 MG/SENNA 8.6 MG TAB PO SCH ×2 (09:44→19:50)
[2017-02-05] MEDS: METOPROLOL TARTRATE 25 MG TAB PO SCH ×2 (09:44→19:46)
[2017-02-05] MEDS: ATORVASTATIN 40 MG TAB PO SCH (09:44)
[2017-02-05] MEDS: SODIUM CHLORIDE 0.9% FLUSH 10 ML FLUSH IV FLUSH SCH ×2 (09:50→19:46)
--- NOTE | 2017-02-05 11:40 | HHI.PR ---
Subjective Remarks Nursing reports that the patient's complaining of back pain. Otherwise no deteriorations. Patient states that his back pain goes down all the way to his legs. Says that he is hurting more here in the hospital than he does at home, takes nothing for back pain at home. says he took tramadol in the past which did nothing. No chest pain so far Objective Vital Signs Date Time Temp Pulse Resp B/P (MAP) Pulse Ox O2 Delivery O2 Flow Rate FiO2 02/05/17 07:00 71 02/05/17 06:05 73 02/05/17 05:00 77 02/05/17 04:30 97.9 76 20 136/82 (100) 95 02/05/17 04:26 78 02/05/17 03:00 84 02/05/17 02:00 88 02/05/17 01:00 79 02/05/17 00:00 86 02/05/17 00:00 97.7 77 20 153/90 (111) 95 02/04/17 23:00 79 02/04/17 22:00 76 02/04/17 21:00 78 02/04/17 20:00 86 02/04/17 20:00 77 22 155/68 (97) 95 02/04/17 19:00 77 02/04/17 18:00 74 02/04/17 17:00 76 02/04/17 16:00 82 02/04/17 15:02 97.4 82 18 148/84 (105) 95 02/04/17 15:00 84 02/04/17 14:00 80 02/04/17 13:00 80 02/04/17 12:00 84 I/O 02/04/17 02/04/17 02/04/17 02/05/17 02/05/17 02/05/17 07:00 15:00 23:00 07:00 15:00 23:00 Intake Total 1030 ml 600 ml 360 ml Output Total 1000 ml 600 ml 500 ml Balance 30 ml 0 ml -140 ml Intake Oral 480 ml 600 ml 360 ml IV Total 550 ml Output Urine Total 1000 ml 600 ml 500 ml # Bowel Movements 0 0 Result Diagram: 02/04/17 1057 02/03/17 0648 Objective Remarks Regular rate and rhythm, no murmurs No lower extremity edema Unlabored breathing A/P Assessment and Plan (1) chest pain resolved Minimal coronary artery disease noted Continue medical management with aspirin, bb, acei, morphine, oxygen, statin, tobacco cessation encouraged Lifestyle modification (2) HTN (hypertension) ICD Code: I10 - Essential (primary) hypertension Plan: Continue metoprolol and lisinopril (3) Leg pain ICD Code: M79.606 - Pain in leg, unspecified Plan: ischemic in nature, patient with abnormal JIMY severe iliac stenosis on CTA with runoff, cards aware Continue aspirin, plan for intervention tomorrow per cards (4) back pain starting heating pad, gabapentin, and lidoderm patch, cutting off IV morphine, has norco on board Alfred Gordon MD Feb 05, 2017 11:40
[2017-02-05] MEDS: GABAPENTIN 300 MG CAP PO SCH ×2 (12:43→18:07)
[2017-02-05 13:07] LABS: BICARBONATE 26.1 MEQ/L (21.0-32.0); POTASSIUM 3.6 MEQ/L (3.5-5.1)
[2017-02-05] MEDS: LIDOCAINE HCL 5% PATCH T-DERMAL SCH (14:25)
[2017-02-05] MEDS: ALPRAZolam 0.5 MG TAB PO PRN (14:55)
[2017-02-05] MEDS ORDERED: REMOVE OLD LIDOCAINE PATCH T-DERMAL SCH (21:00)
[2017-02-05] MEDS: ZOLPIDEM TARTRATE 10 MG TAB PO PRN (22:55)
--- NOTE | 2017-02-05 23:06 | PD.CARD.PN ---
Subjective Subjective Remarks Patient was seen this morning, late entry No events overnight No leg pain at this time Objective Medications Current Medications Medications (Trade) Dose Ordered Sig/Zohra Route Start Time Stop Time Status Last Admin (Lopressor) 25 mg Q12HR PO 02/01/17 21:00 02/05/17 19:46 (NS Flush) 2 ml UNSCH PRN IV FLUSH 02/01/17 19:45 02/03/17 18:52 (NS Flush) 2 ml BID IV FLUSH 02/01/17 21:00 02/05/17 19:46 (Zofran Inj) 4 mg Q6H PRN IVP 02/01/17 19:45 (Tylenol) 650 mg Q6H PRN PO 02/01/17 19:45 ([place] 5-325 Mg) 1 tab Q4H PRN PO 02/01/17 19:45 02/05/17 22:55 (Cori-Colace) 1 tab BID PO 02/01/17 21:00 02/05/17 09:44 (Senokot) 17.2 mg Q12H PRN PO 02/01/17 19:45 (Prinivil) 30 mg DAILY PO 02/02/17 09:00 02/05/17 09:43 (Protonix) 40 mg DAILY PO 02/02/17 09:00 02/05/17 09:44 (Xanax) 0.5 mg Q8H PRN PO 02/02/17 12:30 02/05/17 14:55 (Aspirin) 325 mg DAILY PO 02/03/17 09:00 02/05/17 09:44 (Lipitor) 40 mg DAILY PO 02/03/17 09:00 02/05/17 09:44 (Ambien) 10 mg HS PRN PO 02/03/17 10:45 02/05/17 22:55 Sodium Chloride 1,000 ml @ 100 mls/hr Q10H IV 02/03/17 10:43 02/08/17 10:42 02/04/17 01:30 (Benadryl) 50 mg [employer] PO 02/03/17 10:45 02/07/17 10:44 (Valium) 10 mg [employer] PO 02/03/17 10:45 02/07/17 10:44 (Versed Inj) 1 mg [employer] IV PUSH 02/03/17 10:45 02/07/17 10:44 (Catapres) 0.1 mg Q6H PRN PO 02/04/17 12:00 (Neurontin) 600 mg TID PO 02/05/17 13:00 02/05/17 18:07 (Lidoderm 5% Patch.12 Hr) 1 patch DAILY T-DERMAL 02/05/17 11:45 02/05/17 14:25 Miscellaneous Information 1 Q24H T-DERMAL 02/05/17 21:00 Vital Signs / I&O Vital Signs Date Time Temp Pulse Resp B/P (MAP) Pulse Ox O2 Delivery O2 Flow Rate FiO2 02/05/17 19:38 98.5 94 20 151/83 (105) 97 02/05/17 18:00 82 02/05/17 17:00 78 02/05/17 16:00 98.6 86 20 152/90 (110) 97 02/05/17 16:00 86 02/05/17 15:00 84 02/05/17 14:00 77 02/05/17 13:00 78 02/05/17 12:00 97.9 88 20 137/84 (101) 97 02/05/17 12:00 80 02/05/17 11:00 77 02/05/17 10:00 74 02/05/17 09:00 77 02/05/17 08:00 73 02/05/17 08:00 98.1 76 20 154/83 (106) 95 02/05/17 07:00 71 02/05/17 06:05 73 02/05/17 05:00 77 02/05/17 04:30 97.9 76 20 136/82 (100) 95 02/05/17 04:26 78 02/05/17 03:00 84 02/05/17 02:00 88 02/05/17 01:00 79 02/05/17 00:00 86 02/05/17 00:00 97.7 77 20 153/90 (111) 95 I/O 02/05/17 02/05/17 02/05/17 02/06/17 02/06/17 02/06/17 07:00 15:00 23:00 07:00 15:00 23:00 Intake Total 360 ml 960 ml Output Total 500 ml 600 ml Balance -140 ml 360 ml Intake Oral 360 ml 960 ml Output Urine Total 500 ml 600 ml # Bowel Movements 0 1 Physical Exam GENERAL: NAD, AAOx3 SKIN: Warm and dry. HEAD: Atraumatic. Normocephalic. EYES: Pupils equal and round. No scleral icterus. No injection or drainage. ENT: No nasal bleeding or discharge. Mucous membranes pink and moist. NECK: Trachea midline. No JVD. CARDIOVASCULAR: Regular rate and rhythm. RESPIRATORY: No accessory muscle use. Clear to auscultation. Breath sounds equal bilaterally. GASTROINTESTINAL: Abdomen soft, non-tender, nondistended. Hepatic and splenic margins not palpable. MUSCULOSKELETAL: Extremities without clubbing, cyanosis, or edema. No obvious deformities. Distal pulses diminished NEUROLOGICAL: Awake and alert. No obvious cranial nerve deficits. Motor grossly within normal limits. Five out of 5 muscle strength in the arms and legs. Normal speech. PSYCHIATRIC: Appropriate mood and affect; insight and judgment normal. Laboratory Laboratory Tests Test 02/05/17 11:58 Blood Urea Nitrogen 9 MG/DL Creatinine 0.76 MG/DL Random Glucose 139 MG/DL Calcium Level 8.5 MG/DL Sodium Level 137 MEQ/L Potassium Level 3.6 MEQ/L Chloride Level 103 MEQ/L Carbon Dioxide Level 26.1 MEQ/L Anion Gap 8 MEQ/L Estimat Glomerular Filtration Rate 106 ML/MIN Assessment and Plan Problem List: (1) PAD (peripheral artery disease) ICD Codes: I73.9 - Peripheral vascular disease, unspecified (2) Leg pain ICD Codes: M79.606 - Pain in leg, unspecified (3) Chest pain ICD Codes: R07.9 - Chest pain, unspecified (4) Tobacco abuse ICD Codes: Z72.0 - Tobacco use Assessment and Plan 1) Significant PAD with bilateral iliac disease Concern for rest pain, if further need to restart heparin drip Plan for peripheral angiogram tomorrow with possible intervention 2) Chest pain Catheterization showing no significant disease 3) Most likely MATI Has been set up for evaluation outpatient 4) Tobacco cessation Boyd Caldera DO Feb 05, 2017 23:06
[2017-02-06] VITALS (27 sets, daily range): BP systolic 124–157; BP diastolic 65–98; PULSE 68–110; RESP 16–20; TEMP 97.8–98.6; O2SAT 97–98
[2017-02-06] MEDS: ASPIRIN 325 MG TAB PO SCH (08:18)
[2017-02-06] MEDS: LISINOPRIL 10 MG TAB PO SCH (08:18)
[2017-02-06] MEDS: METOPROLOL TARTRATE 25 MG TAB PO SCH ×2 (08:18→20:27)
[2017-02-06] MEDS: GABAPENTIN 300 MG CAP PO SCH ×3 (08:18→18:00)
[2017-02-06] MEDS: PANTOPRAZOLE SOD 40 MG DELAYED RELEASE TAB PO SCH (08:19)
[2017-02-06] MEDS: DOCUSATE SODIUM 50 MG/SENNA 8.6 MG TAB PO SCH ×2 (08:19→20:27)
[2017-02-06] MEDS: SODIUM CHLORIDE 0.9% FLUSH 10 ML FLUSH IV FLUSH SCH ×2 (08:19→20:27)
[2017-02-06] MEDS: ATORVASTATIN 40 MG TAB PO SCH (08:19)
[2017-02-06] MEDS: LIDOCAINE HCL 5% PATCH T-DERMAL SCH (09:00)
[2017-02-06] MEDS ORDERED: HEPARIN-NS/PF INJ 1,000 ML ONE (09:47)
[2017-02-06] MEDS ORDERED: MIDAZOLAM HCL 2 MG/2 ML VIAL ONE (09:47)
[2017-02-06] MEDS ORDERED: HEPARIN SODIUM - IV 10,000 UNITS/10 ML VIAL ONE ×2 (10:34→11:06)
[2017-02-06] MEDS ORDERED: hydrALAZINE HCL 20 MG/ML VIAL ONE (11:27)
[2017-02-06] MEDS ORDERED: LABETALOL HCL 100 MG/20 ML VIAL ONE (11:59)
[2017-02-06] MEDS ORDERED: CLOPIDOGREL 300 MG TAB ONE (12:16)
[2017-02-06] MEDS ORDERED: SODIUM CHLOR 0.9% 1000 ML INJ 1,000 ML IV SCH (12:17)
--- NOTE | 2017-02-06 12:28 | CATHPROC ---
[facility] HIS Report Study Information Study Number Admission Scheduled Start Study Start [id number] Feb 01 2017 7:38PM 02/05/2017 Feb 06 2017 9:39AM Colp Service Cardiac Catheterization Admit Source Facility Department Other [facility] - Grant Administrator Physician and Clinical Staff Initial Boyd Mar Training Instructor Marion Garza BSN Training Instructor Dex Hogue,JEANCARLOS Other cathlab, cathlab Recorder Grge Hernandez RCIS(BS) Scrub Michael PortilloRT(R) Procedures Performed Procedure Location (Site) Vessel Name Abdominal Angiogram Abd Aorta (A3) Aorta Angiogram (manual) Abd Aorta (A3) Aorta Angiogram (manual) Fem L. Com (L7) Femoral Art Angiogram (manual) Fem R. Com (R7) Femoral Art Angiogram (manual) Fem Sup. (right) Femoral Art Angiogram (manual) Iliac R. Com. (R4) Illiac Art. Angiogram (manual) Peroneal (left) Popliteal Angiogram (manual) Peroneal (right) Popliteal Angiogram (manual) Tib, Ant. (left) Popliteal Angiogram (manual) Tib, Ant. (right) Popliteal Periph stent Iliac L. Com. (L4) Illiac Art. Periph stent Iliac R. Com. (R4) Illiac Art. BURNER TENDER Iliac L. Com. (L4) Illiac Art. BURNER TENDER Iliac R. Com. (R4) Illiac Art. Wire insertion Fem Art (left) Femoral Art Wire insertion Fem Art (right) Femoral Art Equipment Time Gas Check Pad Maker Description Size [facility] [place] Used/Scraped [id number] 10:38 ANGIO-DYNAMICS OMNI FLUSH 65CM CATHETER FR 4 Used *[id number] TRANSDUCER, TRYVETTE [id number] 09:41 MCDUFFIE SERRANO * Used W/STOCKCOCK *[id number] INTRODUCER SET, [id number] 10:12 [employer]. FR 5 Used MICROPUNCTURE *[id number] 11:06 CORDIS/ KISHORE SHEATH, FR6 BRITE TIP 23CM FR 6 23CM [id number] Used [id number] *[id number] 12:01 DAIG/ST. RAPHAEL MEDICAL ANGIOSEAL, FR6 VIP FR 6 Used *[id number] BALLOON, ADMIRAL EXTREME 6 [id number] 11:11 [employer] 80CM Used X 40 80CM *[id number] BALLOON, ADMIRAL EXTREME 6 [id number] 11:11 [employer] 80CM Used X 40 80CM *[id number] CATHETER, FR5 TRAILBLAZER [id number] 10:34 [employer] 135CM Used .035 *[id number] STENT, 10 X 30 ASSURANT [id number] 11:44 [employer] 80CM Used COBALT 80CM *[id number] STENT, 10 X 40 ASSURANT [id number] 11:38 [employer] 80CM Used COBALT 80CM *[id number] 09:41 MED[employer] PACK, CCL CUSTOM * Used *[id number] [id number] 10:46 [employer] 30 ALFREDO INDEFLATOR Used *[id number] 10:46 [employer] 30 ALFREDO INDEFLATOR Used *[id number] 12:05 Fitfully MEDICAL SHEATH, FR6.5 PRELUDE 11CM FR 6.5 038ACT Used *[id number] [id number] 10:12 [employer] WIRE, EXCHANGE 260CM 3MMJ 260CM Used *[id number] 09:41 NAMIC MANIFOLD, 4 PORT * Used *1104075 [id number] 09:41 NAMIC TUBING, HIGH PRESSURE 48" 48" Used *[id number] [id number] 11:31 NAMIC TUBING, HIGH PRESSURE 48" 48" Used *0615414 [id number] 11:34 NAMIC TUBING, HIGH PRESSURE 48" 48" Used *[id number] 10:04 NYCOMED OMNIPAQUE, 300 MG, 50ML 50ML [id number] Used 10:04 NYCOMED OMNIPAQUE, 300 MG, 50ML 50ML [id number] Used [id number] 09:41 GILBERT MEDICAL BLANKET,WARM AIR CCL * Used *[id number] [id number] 10:13 TERUMO MEDICAL SHEATH, FR5 TERUMO (10CM) FR 5 Used *[id number] [id number] 10:45 TERUMO MEDICAL SHEATH, FR6 TERUMO (10CM) FR 6 Used *[id number] WIRE, ANGLED GLIDE .035 [id number] 10:28 TERUMO MEDICAL/KISHORE 260CM Used 260CM *[id number] Equipment Model, Serial, Lot Number and Expiration Data Description Model Number Serial Number Lot Number Expiration Date ANGIOSEAL, ABHAY [facility] [id number] 10-15-2017 STENT, 10 X 40 ASSURANT COBALT [id number] 80CM History: Current Medications Medication Dosage/Unit Route Frequency Last Date/Time Taken Statins (any) 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 History: Allergies Allergy Reaction NKDA History: Risk Factors Family History of Hypertension Dyslipidemia Previous [place] Previous Heart Failure Premature CAD Yes Yes No No No Prior Valve Prior PCI Prior CABG Surgery No No No Cerebrovascular Peripheral Artery Chronic Lung On Dialysis Diabetes Disease Disease Disease No No No Yes No History: Symptoms/Diagnosis Selection Items Chest pain SOB History: Stress Tests Stress or Imaging Studies Performed No History: Other Disease Selection Items COPD HTN History: Other Current Smoker Method Packs a Day Years Used Pack Years Yes Cigarettes 1 11 11 Labs Hgb (g/dl) Hct (%) WBC (l/cumm) Platelets (thousands) 11.60-17.00 35.00-51.00 4.00-11.00 150.00-450.00 12.7 39.1 6.6 244 Glucose (mg/dl) BUN (mg/dl) Creatinine (mg/dl) BUN:Creatinine (1:x) 74.00-106.00 7.00-18.00 0.50-1.30 10.00-20.00 139 9 0.7 12.9 Na (meq/l) K (meq/l) 136.00-145.00 3.50-5.10 137 3.6 INR (PTT:PT) 0.90-1.10 1 Troponin I (ng/ml) CPK (u/l) CPK-MB (ng/ML) 0.02-0.05 26.00-308.00 0.50-3.60 0.02 253 2.0 Medication Medication Total Dose (Bolus/Oral) Medication Total Dosage/Unit 1% XYLOCAINE 40 mL FENTANYL 50 mcg HEPARIN 36266 units HYDRALAZINE 20 mg LABETOLOL 20 mg PLAVIX 600 mg VERSED 1 mg Medications (Bolus/Oral) Medication Time Given Dosage/Unit Administered By Reason 02/06/2017 10:17:23 VERSED 1 mg Dex Hogue AM 1 mg VERSED given in lab by Dex Hogue RN in Right Antecubital via Peripheral IV. Ordered by Boyd Farooq 02/06/2017 10:17:30 FENTANYL 50 mcg Dex Hogue AM 50 mcg FENTANYL given in lab by Dex Hogue, JEANCARLOS in Right Antecubital via Peripheral IV. Ordered by Boyd Caldera. 02/06/2017 10:17:33 1% XYLOCAINE 20 mL Boyd Caldera AM 20 mL 1% XYLOCAINE given in lab by Boyd Caldera in Right Groin via Subcutaneous. 02/06/2017 10:36:53 HEPARIN 37179 units Dex Hogue AM 00901 units HEPARIN given in lab by Dex Hogue, JEANCARLOS in Right Antecubital via Peripheral IV. Ordere d by Boyd Caldera. 02/06/2017 10:44:50 1% XYLOCAINE 20 mL Boyd Caldera AM 20 mL 1% XYLOCAINE given in lab by Boyd Caldera in Left Groin via Subcutaneous. 02/06/2017 11:07:30 HEPARIN 2000 units Dex Hogue AM 2000 units HEPARIN given in lab by Dex Hogue RN in Right Antecubital via Peripheral IV. Ordered by Boyd Caldera. 02/06/2017 11:28:02 HYDRALAZINE 10 mg Marion Garza AM 10 mg HYDRALAZINE given in lab by Marion Garza BSN in Right Antecubital via Peripheral IV. 02/06/2017 11:52:21 HYDRALAZINE 10 mg Marion Garza AM 10 mg HYDRALAZINE given in lab by Marion Garza BSN in Right Antecubital via Peripheral IV. 02/06/2017 12:01:10 LABETOLOL 20 mg Boyd Caldera 20 mg LABETOLOL given in lab by Boyd Caldera in Right Antecubital via Peripheral IV. 02/06/2017 12:18:26 PLAVIX 600 mg Boyd Caldera 600 mg PLAVIX given in lab by Boyd Caldera via Oral. Medication (Drip) Medication Time Given Dosage/Unit Concentration/Unit Diluent (ml) Solution IV Solutions 02/06/2017 9:39:21 AM 0 mL (IV) 500 NaCl .9 Patient arrived on IV Solutions given by cathlab, cathlab in Right Antecubital via Peripheral IV. Pum p/Drip Flow = 20 ml/hr using NaCl .9. Ordered by Boyd Caldera Initial Case Assessment Cardiovascular HR Rhythm NIBP Chest Pain 75 nsr 120/70 0 Edema Present Skin color Skin None Normal Warm Dry Circulatory - Right Pulses Dorsalis Pedis Femoral d d Scale (0,1,2,3,4,d) Circulatory - Left Pulses Dorsalis Pedis Femoral d d Scale (0,1,2,3,4,d) Neurological State Oriented to time-place- Alert person Respiration - General Respiration Rate SpO2 (%) (B/min) 15 95 Final Case Assessment Cardiovascular HR Rhythm NIBP Chest Pain 79 nsr 163/93 0 Edema Present Skin color Skin None Normal Warm Dry Circulatory - Right Pulses Dorsalis Pedis Femoral d d Scale (0,1,2,3,4,d) Circulatory - Left Pulses Dorsalis Pedis Femoral d d Scale (0,1,2,3,4,d) Neurological State Oriented to time-place- Alert person Respiration - General Respiration Rate SpO2 (%) (B/min) 15 95 Chronological Log Time Study Chronological Log 9:39:11 Patient arrived via Bed. 9:39:12 Patient Name, D.O.B, / Armband Verified By R.N. 9:39:12 Consent signed by the physician and the patient and verified by the Grant Administrator staff. 9:39:13 Pre-op and post- op instructions given; patient acknowledges understanding of instructions. 9:39:14 Verbal Stimulation=2 Physical Stimulation=2 Airway=2 Respiration=2 TOTAL=8. (0=absent, 1=li mited, 2=present) 9:39:15 Presedation assessment performed by Grant Administrator RN. 9:39:16 Immediate Presedation assesment performed by physician. 9:39:16 Patient has been NPO for More than 6Hrs. 9:39:18 Skin Breakdown-none per patient 9:39:19 Patient Warmer Placed on the Table. 9:39:20 John Prominences Protected 9:39:20 A # 20 IV was noted in the Antecubital (right). Grade = 0 Patient arrived on IV Solutions given by cathlab, cathlab in Right Antecubital via Peripheral I V. Pump/Drip Flow = 20 9:39:21 ml/hr using NaCl .9. Ordered by Boyd Caldera 9:39:22 History and physical on the chart or being dictated. Vitals capture started with the following parameters, Patient=Adult, Interval=5 min, Initial Pr vcrekf=422 mmHg, 9:46:51 Deflation Rate=5 mmHg, Cuff placed on Right Arm Assessment: Initial Case, HR=75 BPM, Rhythm=nsr, XIGK=425/70 mmhg, Chest Pain=0, Edema=None, [place]=Normal, Skin = Warm, Dry Right Pulses: Kayden Ped=d, Femoral=d 9:46:54 Left Pulses: Kayden Ped=d, Femoral=d Neurological: State=Alert, Ox3 Respiration: Resp=15 B/min, SpO2=95 % 9:47:26 Reference ECG taken 9:48:03 HR=73 bpm, RWOR=325/85 mmhg, SpO2=95.0 %, Resp=10 B/min, Pain=0, Archie=10, Gleason=2 9:52:35 HR=79 bpm, ISJO=648/70 mmhg, SpO2=95.0 %, Resp=15 B/min, Pain=0, Archie=10, Gleason=2 9:55:11 Pre-op and post- op instructions given; patient acknowledges understanding of instructions. 9:57:57 HR=72 bpm, HIKV=023/95 mmhg, SpO2=96.0 %, Resp=16 B/min, Pain=0, Archie=10, Gleason=2 10:01:25 Bilateral groins prepped with 2% chlorhexidine, and draped after a 3 minute waiting time. 10:02:31 HR=67 bpm, KREA=411/90 mmhg, SpO2=93.0 %, Resp=18 B/min, Pain=0, Archie=10, Gleason=2 10:06:31 MD paged 10:07:31 HR=71 bpm, BAGQ=668/90 mmhg, SpO2=97.0 %, Resp=9 B/min, Pain=0, Archie=10, Gleason=2 10:07:39 MD responded 10:08:03 Pressure channel 1 zeroed. 10:09:20 MD arrived. 10:13:06 HR=70 bpm, AVEK=599/107 mmhg, SpO2=96.0 %, Resp=15 B/min, Pain=0, Archie=10, Gleason=2 10:13:31 Contrast Scanned 10::31 Immediate Presedation assesment performed by physician. Time Out. Correct patient, correct procedure, correct physician, power injector loaded with con trast with surgical team 10:16:46 present. Time Out Concurred by MD and individual staff in procedure. 10:16:56 Case Start 10:17:23 1 mg VERSED given in lab by Dex Hogue, RN in Right Antecubital via Peripheral IV. Orde red by Boyd Caldera 50 mcg FENTANYL given in lab by Dex Hogue, JEANCARLOS in Right Antecubital via Peripheral IV. Orde red by Boyd Caldera 10:17:30 G. 10:17:33 20 mL 1% XYLOCAINE given in lab by Boyd Caldera in Right Groin via Subcutaneous. 10:17:35 HR=57 bpm, BTVT=320/94 mmhg, SpO2=96.0 %, Resp=12 B/min, Pain=0, Archie=10, Gleason=2 10:19:06 Access site was Right Femoral Artery. 10:19:10 A INTRODUCER SET, MICROPUNCTURE FR 5 was advanced into the Fem Art (right) using the Percut aneous technique. A SHEATH, FR5 TERUMO (10CM) FR 5 was exchanged in the Fem Art (right). This was necessary in or libby to 10:19:19 accomodate a larger catheter. 10:21:36 Fem R. Com (R7) angiogram, manually injected. 10:22:05 Fem Sup. (right) angiogram, manually injected. 10:22:34 HR=69 bpm, PFKH=993/92 mmhg, SpO2=95.0 %, Resp=14 B/min, Pain=0, Archie=10, Gleason=2 10:22:39 Tib, Ant. (right) angiogram, manually injected. 10:22:48 Peroneal (right) angiogram, manually injected. 10:27:35 HR=63 bpm, MPBN=801/85 mmhg, SpO2=92.0 %, Resp=17 B/min, Pain=0, Archie=10, Gleason=2 A JR 4.0 INFINITI CATHETER FR 5 was advanced over a wire. OMNIPAQUE, 300 MG, 50ML 50ML was used for 10:28:36 injections. 10:30:09 Iliac R. Com. (R4) angiogram, manually injected. 10:32:38 HR=68 bpm, DERN=189/95 mmhg, SpO2=95.0 %, Resp=13 B/min, Pain=0, Archie=10, Gleason=2 10:32:41 A WIRE, ANGLED GLIDE .035 260CM 260CM was inserted via Fem Art (right). After removing the current catheter a CATHETER, FR5 TRAILBLAZER .035 135CM was advanced over a WIRE, ANGLED 10:34:07 GLIDE .035 260CM 260CM. 04977 units HEPARIN given in lab by Dex Hogue, RN in Right Antecubital via Peripheral IV. Ordered by Werner, 10:36:53 Boyd Foster. 10:37:37 HR=66 bpm, RQIN=063/91 mmhg, SpO2=95.0 %, Resp=8 B/min, Pain=0, Archie=10, Gleason=2 After removing the current catheter a OMNI FLUSH 65CM CATHETER FR 4 was advanced over a WIRE, E XCHANGE 10:38:37 260CM 3MMJ 260CM. 10:41:52 Abd Aorta (A3) angiogram, manually injected. 10:42:38 HR=73 bpm, ISSQ=965/84 mmhg, SpO2=96.0 %, Resp=8 B/min, Pain=0, Archie=10, Gleason=2 10:44:50 20 mL 1% XYLOCAINE given in lab by Boyd Caldera in Left Groin via Subcutaneous. 10:48:12 HR=70 bpm, AQDI=897/89 mmhg, SpO2=97.0 %, Resp=16 B/min, Pain=0, Archie=10, Gleason=2 10:48:59 Access site was Left Femoral Artery. 10:49:06 A INTRODUCER SET, MICROPUNCTURE FR 5 was advanced into the Fem Art (left) using the Percuta neous technique. A SHEATH, FR6 TERUMO (10CM) FR 6 was exchanged in the Fem Art (left). This was necessary in ord er to 10:49:19 accomodate a larger catheter. 10:52:38 HR=75 bpm, PEWB=686/108 mmhg, SpO2=97.0 %, Resp=15 B/min 10:54:12 A WIRE, EXCHANGE 260CM 3MMJ 260CM was inserted via Fem Art (left). 10:57:07 Fem L. Com (L7) angiogram, manually injected. 10:57:41 HR=74 bpm, ACVG=751/107 mmhg, SpO2=97.0 %, Resp=19 B/min, Pain=0, Archie=10, Gleason=2 10:58:14 Tib, Ant. (left) angiogram, manually injected. 10:58:21 Peroneal (left) angiogram, manually injected. 11:02:24 Activated Clotting Time Drawn 11:02:42 HR=66 bpm, CDCL=230/87 mmhg, SpO2=93.0 %, Resp=17 B/min, Pain=0, Archie=10, Gleason=2 11:06:11 ACT (Normal Range 90-180) = 240 A SHEATH, FR6 BRITE TIP 23CM FR 6 23CM was exchanged in the Fem Art (right). This was necessary in order to 11:06:27 accomodate a larger catheter. 2000 units HEPARIN given in lab by Dex Hogue, RN in Right Antecubital via Peripheral IV. O rdered by Werner, 11:07:30 Boyd Marsh 11:07:43 HR=67 bpm, ULSG=773/93 mmhg, SpO2=97.0 %, Resp=13 B/min, Pain=0, Archie=10, Gleason=2 11:11:10 A WIRE, ANGLED GLIDE .035 260CM 260CM was inserted via Fem Art (left). A BALLOON, ADMIRAL EXTREME 6 X 40 80CM 80CM was inserted over WIRE, EXCHANGE 260CM 3MMJ 260CM v ia the 11:11:16 Iliac R. Com. (R4). A BALLOON, ADMIRAL EXTREME 6 X 40 80CM 80CM was inserted over WIRE, EXCHANGE 260CM 3MMJ 260CM v ia the 11:11:29 Iliac L. Com. (L4). 11:12:42 HR=74 bpm, SOST=923/98 mmhg, SpO2=97.0 %, Resp=11 B/min, Pain=0, Archie=10, Gleason=2 11:13:49 In the Iliac L. Com. (L4) a BALLOON, ADMIRAL EXTREME 6 X 40 80CM 80CM was inflated to 8 alfredo s for 30 seconds. 11:14:02 In the Iliac R. Com. (R4) a BALLOON, ADMIRAL EXTREME 6 X 40 80CM 80CM was inflated to 8 alfredo s for 30 seconds. 11:15:28 Balloon Removed from Left Common Iliac 11:17:41 HR=72 bpm, RZSM=184/100 mmhg, SpO2=97.0 %, Resp=15 B/min, Pain=0, Archie=10, Gleason=2 11:18:55 Abd Aorta (A3) angiogram, manually injected. 11:22:45 HR=75 bpm, WDFN=054/108 mmhg, SpO2=94.0 %, Resp=20 B/min, Pain=0, Archie=10, Gleason=2 11:23:14 In the Iliac R. Com. (R4) a BALLOON, ADMIRAL EXTREME 6 X 40 80CM 80CM was inflated to 8 alfredo s for 30 seconds. 11:23:48 Abd Aorta (A3) angiogram, manually injected. 11:24:50 Balloon Removed. A OMNI FLUSH 65CM CATHETER FR 4 was advanced over a wire. OMNIPAQUE, 300 MG, 50ML 50ML was used for 11:25:20 injections. 11:26:04 Iliac R. Com. (R4) angiogram, manually injected. 11:27:44 HR=75 bpm, FSMI=729/89 mmhg, SpO2=97.0 %, Resp=10 B/min, Pain=0, Archie=10, Gleason=2 11:28:02 10 mg HYDRALAZINE given in lab by Marion Garza , DOMINGAN in Right Antecubital via Periphe ral IV. 11:32:59 Through a OMNI FLUSH 65CM CATHETER FR 4, The Abdominal Aorta was injected with 10 cc's of c ontrast. 11:33:13 HR=79 bpm, MAAR=087/93 mmhg, SpO2=95.0 %, Resp=16 B/min, Pain=0, Archie=10, Gleason=2 11:37:40 HR=77 bpm, GLQK=031/95 mmhg, SpO2=96.0 %, Resp=21 B/min, Pain=0, Archie=10, Gleason=2 11:40:48 Catheter was removed A STENT, 10 X 40 ASSURANT COBALT 80CM 80CM was advanced through a catheter over a WIRE, ANGLED GLIDE .035 11:41:31 260CM 260CM. 11:42:45 HR=83 bpm, VZOL=218/96 mmhg, SpO2=96.0 %, Resp=13 B/min, Pain=0, Archie=10, Gleason=2 A STENT, 10 X 30 ASSURANT COBALT 80CM 80CM was advanced through a catheter over a WIRE, ANGLED GLIDE .035 11:43:31 260CM 260CM. Stent Removed, Not Deployed. Right side. 11:44:49 A STENT, 10 X 40 ASSURANT COBALT 80CM 80CM was advanced through a catheter over a WIRE, EXCHANG E 260CM 11:47:37 3MMJ 260CM. 11:48:25 HR=79 bpm, LXRF=394/93 mmhg, SpO2=97.0 %, Resp=13 B/min, Pain=0, Archie=10, Gleason=2 A STENT, 10 X 40 ASSURANT COBALT 80CM 80CM was deployed at 8 atmospheres for 30 seconds in the Iliac R. Com. 11:49:23 (R4). A STENT, 10 X 30 ASSURANT COBALT 80CM 80CM was deployed at 8 atmospheres for 30 seconds in the Iliac L. Com. 11:49:27 (L4). 11:50:37 Delivery device removed 11:50:38 Delivery device removed 11:52:21 10 mg HYDRALAZINE given in lab by Marion Garza BSN in Right Antecubital via Periphe ral IV. 11:52:47 HR=87 bpm, TAFQ=386/106 mmhg, SpO2=96.0 %, Resp=22 B/min, Pain=0, Archie=10, Gleason=2 A OMNI FLUSH 65CM CATHETER FR 4 was advanced over a wire. OMNIPAQUE, 300 MG, 50ML 50ML was used for 11:53:18 injections. 11:55:26 Through a OMNI FLUSH 65CM CATHETER FR 4, The Abdominal Aorta was injected with 10 cc's of c ontrast. 11:57:58 A WIRE, ANGLED GLIDE .035 260CM 260CM was inserted via Fem Art (right). 11:58:25 HR=92 bpm, DZCK=310/101 mmhg, SpO2=97.0 %, Resp=11 B/min, Pain=0, Archie=10, Gleason=2 12:01:10 20 mg LABETOLOL given in lab by Boyd Caldera in Right Antecubital via Peripheral IV. 12:02:45 HR=78 bpm, JUIM=591/76 mmhg, SpO2=95.0 %, Resp=13 B/min, Pain=0, Archie=10, Gleason=2 12:02:56 ANGIOSEAL, FR6 VIP FR 6 placement in the Fem Art (left) 12:05:45 A WIRE, EXCHANGE 260CM 3MMJ 260CM was inserted via Fem Art (right). A SHEATH, FR6.5 PRELUDE 11CM FR 6.5 was exchanged in the Fem Art (right). This was necessary in order to 12:06:20 accomodate a larger catheter. 12:07:16 Case End 12:07:18 In the Fem Art (right) the SHEATH, FR6.5 PRELUDE 11CM FR 6.[address] by Boyd Raya. 12:07:40 HR=79 bpm, UDPS=809/93 mmhg, SpO2=96.0 %, Resp=9 B/min, Pain=0, Archie=10, Gleason=2 Assessment: Final Case, HR=79 BPM, Rhythm=nsr, WALV=382/93 mmhg, Chest Pain=0, Edema=None, [place] r=Normal, Skin = Warm, Dry Right Pulses: Kayden Ped=d, Femoral=d 12:09:01 Left Pulses: Kayden Ped=d, Femoral=d Neurological: State=Alert, Ox3 Respiration: Resp=15 B/min, SpO2=95 % 12:09:12 Catheter(s) removed without difficulty 12:09:13 Sterile dressing applied to site 12:09:14 No case complications noted. 12:09:14 Cine recording checked. 12:09:17 Bedside Report will be given. 12:09:17 Implantable Device card placed in patient's chart. 12:09:18 Contrast Scanned 12:09:19 Verbal Stimulation=2 Physical Stimulation=2 Airway=2 Respiration=2 TOTAL=8. (0=absent, 1=l imited, 2=present) 12:12:43 HR=83 bpm, PFYP=447/107 mmhg, SpO2=96.0 %, Resp=11 B/min, Pain=0, Archie=10, Gleason=2 12:16:03 Vitals capture stopped. 12:16:04 Patient moved to [facility] 12:18:26 600 mg PLAVIX given in lab by Boyd Caldera via Oral. End Study - Contrast Media Used In Study Contrast Total Opened (mL) Total Used (mL) Total Wasted (mL) Omnipaque 175 175 0 End Study - Maximum Contrast Load Max Contrast Load (mL) 1052.9 End Study - Radiation Exposure Fluoro Time (minutes) 12.4 End Study - Patient Disposition Complications Transferred To Interventional Outcome No Telemetry Bed successful
[2017-02-06] MEDS ORDERED: MISC INFORMATION XX ONE (12:30)
[2017-02-06] MEDS ORDERED: ATROPINE SULFATE 1 MG/ML VIAL IV PUSH PRN (12:30)
[2017-02-06] MEDS ORDERED: IOHEXOL 350 MG/ML 100 ML BTL (for Cath Lab) OTHER ONE (13:27)
--- NOTE | 2017-02-06 14:52 | HHI.PR ---
Subjective Remarks Nursing denies any deterioration since last night. Patient himself says his back pain is better. Is looking forward to walking as soon as he is able to. Objective Vital Signs Date Time Temp Pulse Resp B/P (MAP) Pulse Ox O2 Delivery O2 Flow Rate FiO2 02/06/17 13:00 84 02/06/17 13:00 79 16 124/65 (84) 98 02/06/17 12:00 89 02/06/17 09:00 82 02/06/17 08:00 86 02/06/17 07:42 97.8 86 20 135/73 (93) 97 02/06/17 07:00 84 02/06/17 06:00 72 02/06/17 05:00 78 02/06/17 04:00 68 02/06/17 03:22 97.8 88 20 154/98 (116) 97 02/06/17 03:00 75 02/06/17 02:00 78 02/06/17 01:00 80 02/06/17 00:00 72 02/05/17 23:45 97.8 87 20 141/60 (87) 97 02/05/17 23:00 76 02/05/17 22:00 84 02/05/17 21:00 88 02/05/17 20:00 86 02/05/17 19:38 98.5 94 20 151/83 (105) 97 02/05/17 19:00 84 02/05/17 18:00 82 02/05/17 17:00 78 02/05/17 16:00 98.6 86 20 152/90 (110) 97 02/05/17 16:00 86 02/05/17 15:00 84 I/O 02/05/17 02/05/17 02/05/17 02/06/17 02/06/17 02/06/17 07:00 15:00 23:00 07:00 15:00 23:00 Intake Total 360 ml 960 ml 240 ml Output Total 500 ml 600 ml Balance -140 ml 360 ml 240 ml Intake Oral 360 ml 960 ml 240 ml Output Urine Total 500 ml 600 ml # Voids 2 # Bowel Movements 0 1 1 Result Diagram: 02/04/17 1057 02/05/17 1158 Objective Remarks Regular rate and rhythm, no murmurs No lower extremity edema Unlabored breathing Has good pulses in left foot which is warm, unable to palpate any in the right foot which is slightly cool at this time A/P Assessment and Plan (1) PAD - s/p BL iliac stent placement - bmp in AM, cardiology following (2) stable CAD Continue medical management with aspirin, bb, acei, morphine, oxygen, statin, tobacco cessation encouraged Lifestyle modification (3) HTN (hypertension) ICD Code: I10 - Essential (primary) hypertension Plan: Continue metoprolol and lisinopril (4) back pain heating pad, gabapentin, and lidoderm patch, has tamirco on board anticipate DC tomorrow Alfred Gordon MD Feb 06, 2017 14:52
--- NOTE | 2017-02-06 16:25 | PD.CARD.PN ---
Subjective Subjective Remarks Post-peripheral angiogram Doing well, no complaints Objective Medications Current Medications Medications (Trade) Dose Ordered Sig/Zohra Route Start Time Stop Time Status Last Admin (Lopressor) 25 mg Q12HR PO 02/01/17 21:00 02/06/17 08:18 (NS Flush) 2 ml UNSCH PRN IV FLUSH 02/01/17 19:45 02/03/17 18:52 (NS Flush) 2 ml BID IV FLUSH 02/01/17 21:00 02/06/17 08:19 (Zofran Inj) 4 mg Q6H PRN IVP 02/01/17 19:45 (Tylenol) 650 mg Q6H PRN PO 02/01/17 19:45 ([place] 5-325 Mg) 1 tab Q4H PRN PO 02/01/17 19:45 02/05/17 22:55 (Cori-Colace) 1 tab BID PO 02/01/17 21:00 02/06/17 08:19 (Senokot) 17.2 mg Q12H PRN PO 02/01/17 19:45 (Prinivil) 30 mg DAILY PO 02/02/17 09:00 02/06/17 08:18 (Protonix) 40 mg DAILY PO 02/02/17 09:00 02/06/17 08:19 (Xanax) 0.5 mg Q8H PRN PO 02/02/17 12:30 02/05/17 14:55 (Lipitor) 40 mg DAILY PO 02/03/17 09:00 02/06/17 08:19 (Ambien) 10 mg HS PRN PO 02/03/17 10:45 02/05/17 22:55 (Benadryl) 50 mg WINDOWS ADMINISTRATOR PO 02/03/17 10:45 02/07/17 10:44 (Valium) 10 mg WINDOWS ADMINISTRATOR PO 02/03/17 10:45 02/07/17 10:44 (Versed Inj) 1 mg WINDOWS ADMINISTRATOR IV PUSH 02/03/17 10:45 02/07/17 10:44 (Catapres) 0.1 mg Q6H PRN PO 02/04/17 12:00 (Neurontin) 600 mg TID PO 02/05/17 13:00 02/06/17 13:41 (Lidoderm 5% Patch.12 Hr) 1 patch DAILY T-DERMAL 02/05/17 11:45 02/05/17 14:25 Miscellaneous Information 1 Q24H T-DERMAL 02/05/17 21:00 Sodium Chloride 1,000 ml @ 60 mls/hr [id number] IV 02/06/17 12:17 02/07/17 00:16 02/06/17 12:17 (Plavix) 75 mg DAILY PO 02/07/17 09:00 (Atropine Inj) 0.5 mg UNSCH PRN IV PUSH 02/06/17 12:30 (Aspirin Chew) 81 mg DAILY CHEW 02/07/17 09:00 Vital Signs / I&O Vital Signs Date Time Temp Pulse Resp B/P (MAP) Pulse Ox O2 Delivery O2 Flow Rate FiO2 02/06/17 15:33 98.5 89 20 157/78 (104) 97 02/06/17 15:00 99 02/06/17 14:00 96 02/06/17 13:00 84 02/06/17 13:00 79 16 124/65 (84) 98 02/06/17 12:00 89 02/06/17 09:00 82 02/06/17 08:00 86 02/06/17 07:42 97.8 86 20 135/73 (93) 97 02/06/17 07:00 84 02/06/17 06:00 72 02/06/17 05:00 78 02/06/17 04:00 68 02/06/17 03:22 97.8 88 20 154/98 (116) 97 02/06/17 03:00 75 02/06/17 02:00 78 02/06/17 01:00 80 02/06/17 00:00 72 02/05/17 23:45 97.8 87 20 141/60 (87) 97 02/05/17 23:00 76 02/05/17 22:00 84 02/05/17 21:00 88 02/05/17 20:00 86 02/05/17 19:38 98.5 94 20 151/83 (105) 97 02/05/17 19:00 84 02/05/17 18:00 82 02/05/17 17:00 78 I/O 02/05/17 02/05/17 02/05/17 02/06/17 02/06/1722/17 07:00 15:00 23:00 07:00 15:00 23:00 Intake Total 360 ml 960 ml 240 ml Output Total 500 ml 600 ml Balance -140 ml 360 ml 240 ml Intake Oral 360 ml 960 ml 240 ml Output Urine Total 500 ml 600 ml # Voids 2 # Bowel Movements 0 1 1 Physical Exam GENERAL: NAD, AAOx3 SKIN: Warm and dry. HEAD: Atraumatic. Normocephalic. EYES: Pupils equal and round. No scleral icterus. No injection or drainage. ENT: No nasal bleeding or discharge. Mucous membranes pink and moist. NECK: Trachea midline. No JVD. CARDIOVASCULAR: Regular rate and rhythm. RESPIRATORY: No accessory muscle use. Clear to auscultation. Breath sounds equal bilaterally. GASTROINTESTINAL: Abdomen soft, non-tender, nondistended. Hepatic and splenic margins not palpable. MUSCULOSKELETAL: Extremities without clubbing, cyanosis, or edema. No obvious deformities. Distal pulses increased NEUROLOGICAL: Awake and alert. No obvious cranial nerve deficits. Motor grossly within normal limits. Five out of 5 muscle strength in the arms and legs. Normal speech. PSYCHIATRIC: Appropriate mood and affect; insight and judgment normal. Assessment and Plan Problem List: (1) PAD (peripheral artery disease) ICD Codes: I73.9 - Peripheral vascular disease, unspecified (2) Leg pain ICD Codes: M79.606 - Pain in leg, unspecified (3) Chest pain ICD Codes: R07.9 - Chest pain, unspecified (4) Tobacco abuse ICD Codes: Z72.0 - Tobacco use Assessment and Plan 1) Significant PAD with bilateral iliac disease and concern for rest pain s/p B/L [place] kissing stents Con't ASA/Plavix 2) Chest pain Catheterization showing no significant disease 3) Most likely MATI Has been set up for evaluation outpatient 4) Tobacco cessation 5) If stable in the morning, may be discharged for follow up with me in the office If any concerns tomorrow please call the covering physician Boyd Caldera DO Feb 06, 2017 16:25
[2017-02-07] VITALS (10 sets, daily range): BP systolic 109–123; BP diastolic 68–77; PULSE 78–112; RESP 16–20; TEMP 98.4–98.6; O2SAT 96–97
--- NOTE | 2017-02-07 00:24 | MA ---
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 PREPROCEDURE DIAGNOSIS Bilateral claudication with rest pain. POSTPROCEDURE DIAGNOSIS Bilateral iliac disease status post [place] (10 x 40) to the right iliac, [place] (10 x 30) to left iliac. MEDICATIONS 1. Versed 2 milligrams. 2. Fentanyl 100 micrograms. 3. Heparin 12,000 units. 4. Hydralazine 20 milligrams. 5. Labetalol 20 milligrams. 6. Plavix 600 milligrams. CONTRAST USED 175 cc. FLUOROSCOPY 12.4 minutes. MODERATE SEDATION 105 minutes. ESTIMATED BLOOD LOSS 20 cc. PROCEDURAL SUMMARY Bladimir Rosario is a pleasant 56-year-old male who presented after having an abnormal stress test at the [facility]. He underwent cardiac catheterization by Dr. Mccall which found no significant disease. In evaluating him, it was noted that he had significant claudication with actual rest pain. He underwent CTA with runoff which showed severe disease of his right iliac and moderate to severe disease of his left iliac arteries. I was asked to see him in consideration of peripheral angiogram and intervention. Risks, benefits and alternatives were explained to him and he consented as such. He was brought to the lab and prepped in the usual sterile fashion. Right femoral artery was accessed using a modified Seldinger technique and placement of a 5-Citizen Of [place] sheath. This was easily aspirated and flushed. Angiogram was done through the sheath which shows mild calcification at the common femoral artery. Angiogram of the right lower extremity shows no significant disease throughout the SFA and distally two-vessel runoff of the peroneal and posterior tibial arteries. A JR-4 guide was advanced up the iliac which shows probable occlusion at the takeoff of the right iliac. An angled Glidewire was used to cross the occlusion of the right iliac artery and a trailblazer was advanced with the angiogram showing to be in the aorta. This was exchanged for an Omni flush which was used for angiogram which shows the occlusion of the right iliac artery and significant disease of the left iliac artery ostium. Left femoral artery was accessed using a modified Seldinger technique and placement of a 6-Citizen [place] Terumo sheath. This was used for runoff of the left lower extremity which shows no significant disease throughout the SFA with two-vessel runoff to the lower extremity via the anterior and posterior tibials. At this time the right femoral sheath was exchanged for a 6-Citizen Of [place] long bright tip sheath. Bilateral balloons (6 x 40) were advanced to the iliacs and inflated simultaneously. A [place] stent (10 x 40) was advanced up the right iliac and a [place] stent (10 x 30) was advanced up the left iliac. These were simultaneously inflated to recreate the lillian at the takeoff of the iliacs. Final angiogram shows well opposed stents with good flow down both iliacs. Left femoral sheath was removed and Angio-Seal was placed. Right femoral sheath was left in place with a plan to remove once ACTs were acceptable and pressure held for hemostasis. The patient left the labeling specialist cardiovascularly stable. FINDINGS Right lower extremity: Right common iliac shows complete occlusion with no significant disease noted throughout the rest of the iliac. The right SFA shows no significant disease. Distally, there appears to be two-vessel runoff via the peroneal and posterior tibial vessels. Left lower extremity: Left celiac artery with significant 80% disease at the ostial takeoff. 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 Distally, there appears to be two-vessel runoff to the lower extremity via the AT and PT. IMPRESSION 1. Claudication with rest pain bilaterally. 2. PAD status post [place] stent (10 x 40) to the right common iliac, [place] stent (10 x 30) to the left common iliac recreating the lillian at the aorta. RECOMMENDATIONS 1. Mr. Rosario underwent intervention of his bilateral iliacs due to his claudication and rest pain. 2. He will be placed on aspirin and Plavix therapy. 3. If stable in the morning he can be discharged home with a plan to follow up with me in the office in the next 2-4 weeks. Thank you for allowing me to see Bladimir Rosario. If there are any questions please do not hesitate to call. Boyd Sanches DO VGP/EO /9:15 PM /12:10 AM
[2017-02-07] MEDS: ZOLPIDEM TARTRATE 10 MG TAB PO PRN (01:05)
[2017-02-07] MEDS: ACETAMINOPHEN/HYDROcodone 325 MG/5 MG TAB PO PRN (01:05)
[2017-02-07 04:26] LABS: BASOPHIL % 0.4 % (0.0-2.0); EOSINOPHIL # 0.2 TH/MM3 (0-0.4); EOSINOPHIL % 1.9 % (0.0-4.0); HEMATOCRIT 39.5 % (39.0-51.0); HEMO FLAGS DIFF FINAL; LYMPH % 16.4 % (9.0-44.0); LYMPHOCYTE # 1.8 TH/MM3 (1.0-4.8); MEAN CORPUSCULAR HEMOGLOBIN 26.7 PG (27.0-34.0); MONO % 7.9 % (0.0-8.0); NEUT % 73.4 % (16.0-70.0); PLATELET COUNT 247 TH/MM3 (150-450); RED BLOOD COUNT 4.87 MIL/MM3 (4.50-5.90); RED CELL DISTRIBUTION WIDTH 15.7 % (11.6-17.2); WHITE BLOOD COUNT 10.9 TH/MM3 (4.0-11.0)
[2017-02-07 04:49] LABS: BICARBONATE 24.6 MEQ/L (21.0-32.0)
[2017-02-07] MEDS ORDERED: ASPIRIN 81 MG CHEW TAB CHEW SCH (09:00)
[2017-02-07] MEDS ORDERED: CLOPIDOGREL 75 MG TAB PO SCH (09:00)
[2017-02-07] MEDS: SODIUM CHLORIDE 0.9% FLUSH 10 ML FLUSH IV FLUSH SCH (09:00)
[2017-02-07] MEDS: LISINOPRIL 10 MG TAB PO SCH (09:41)
[2017-02-07] MEDS: GABAPENTIN 300 MG CAP PO SCH (09:41)
[2017-02-07] MEDS: PANTOPRAZOLE SOD 40 MG DELAYED RELEASE TAB PO SCH (09:41)
[2017-02-07] MEDS: DOCUSATE SODIUM 50 MG/SENNA 8.6 MG TAB PO SCH (09:41)
[2017-02-07] MEDS: METOPROLOL TARTRATE 25 MG TAB PO SCH (09:42)
[2017-02-07] MEDS: ATORVASTATIN 40 MG TAB PO SCH (09:42)
[2017-02-07] MEDS: LIDOCAINE HCL 5% PATCH T-DERMAL SCH (09:43)
[2017-02-07] MEDS ORDERED: METO25TA3 PO (11:16)
[2017-02-07] MEDS ORDERED: PLAV75TA29 PO (11:16)
[2017-02-07] MEDS ORDERED: NEUR300C PO (11:16)
[2017-02-07] MEDS ORDERED: ATOR40TA16 PO (11:16)
[2017-02-07] MEDS ORDERED: ASPI81 CHEW (11:16)
--- NOTE | 2017-02-07 11:18 | HHI.DCPOC ---
Discharge Care Plan Diagnosis: (1) PAD (peripheral artery disease) (2) Leg pain (3) HTN (hypertension) Goals to Promote Your Health * To prevent worsening of your condition and complications * To maintain your health at the optimal level Directions to Meet Your Goals Take your medications as prescribed Follow your dietary instruction Follow activity as directed Keep your appointments as scheduled Take your immunizations and boosters as scheduled If your symptoms worsen call your PCP, if no PCP go to Urgent Care Center or Emergency Room Smoking is Dangerous to Your Health. Avoid second hand smoke Call the 24-hour hour crisis hotline for domestic abuse at Alfred Gordon MD Feb 07, 2017 11:18
--- NOTE | 2017-02-07 11:19 | HHI.DS ---
Discharge Summary Admission Date Feb 01, 2017 at 19:38 Discharge Date: Feb 07, 2017 Admitting Diagnosis Chest pain (1) ACS (acute coronary syndrome) ICD Code: I24.9 - Acute ischemic heart disease, unspecified (2) Chest pain ICD Code: R07.9 - Chest pain, unspecified (3) HTN (hypertension) ICD Code: I10 - Essential (primary) hypertension (4) Leg pain ICD Code: M79.606 - Pain in leg, unspecified (5) PAD (peripheral artery disease) ICD Code: I73.9 - Peripheral vascular disease, unspecified Procedures Cardiac catheterization, peripheral angiogram with bilateral iliac stenting on 02/06 Brief History - From Admission This is a 56-year-old male w/ a PMH of HTN, COPD and Tobacco Abuse who was referred to the ER by [facility] secondary to abnormal Stress Test. States he's been having c/o intermittent chest pain for several weeks. Seen at the [facility] in [facility], s/p Stress Test, called w/ abnormal results and instructed to go to the ER. Reports occasional SOB associated w/ chest pain. On arrival, BP 141/63, HR 120, O2 sat 97% on RA, Temp 99.2. CBC unremarkable. Vern unremarkable except for GFR 68. Troponin negative. CPK 316. INR 1.0. CXR with no acute findings. Dr. Mccall consulted by ER physician, recommended admission for further cardiac intervention. CBC/BMP: 02/07/17 0350 02/07/17 0350 Significant Findings Laboratory Tests Test 02/05/17 11:58 02/07/17 03:50 Random Glucose 139 MG/DL (74-106) 118 MG/DL (74-106) Mean Corpuscular Hemoglobin 26.7 PG (27.0-34.0) Neutrophils (%) (Auto) 73.4 % (16.0-70.0) Neutrophils # (Auto) 8.0 TH/MM3 (1.8-7.7) PE at Discharge Unlabored breathing, clear lungs bilaterally Standing upright ambulating well with no limping or pain Hospital Course Patient was admitted, had a positive stress test. Cardiology was consulted, performed cardiac catheterization which was unremarkable for any significant occlusion warranting stenting. Given that the patient had abnormal JIMY with leg pain, peripheral angiogram was also performed and bilateral iliac stents were placed. Patient had significant improvement in his lower leg pain and was ambulating well on the day of discharge. Patient has met maximal benefit from hospitalization and is currently stable for discharge. Pt Condition on Discharge: Stable Discharge Disposition: Discharge Home Discharge Time: <= 30 minutes Discharge Instructions DIET: Follow Instructions for: Heart Healthy Diet, Low Sodium Diet Follow up Referrals: Cardiology - 2 Weeks with Boyd Caldera DO PCP Follow-up - 1 Week New Medications: Aspirin (Tgt Aspirin) 81 Mg Chw 81 MG CHEW DAILY for Blood Clot Prevention, #30 EA Atorvastatin (Atorvastatin) 40 Mg Tab 40 MG PO HS for Blood Clot Prevention, #30 TAB Clopidogrel (Plavix) 75 Mg Tab 75 MG PO DAILY for Blood Clot Prevention, #30 TAB Gabapentin (Neurontin) 300 Mg Cap 600 MG PO TID for back pain, #90 CAP Metoprolol Tartrate (Metoprolol Tartrate) 25 Mg Tab 25 MG PO Q12HR for Blood Pressure Management, #60 TAB Continued Medications: Lisinopril (Lisinopril) 30 Mg Tab 30 MG PO DAILY for Blood Pressure Management, #30 TAB 0 Refills Omeprazole (Omeprazole) 40 Mg Cap 40 MG PO DAILY, #30 CAP 0 Refills Alfred Gordon MD Feb 07, 2017 11:18
== END 2017-02-07 11:45 | disposition home or self-care (01) | DRG 253 ==
LOC: NEPE 16:40 → NEDA 19:38 → HCIS 22:37
PROVIDERS: ADMIT Hospitalist; ATTEND Hospitalist
PROC: 4A023N7 Measurement of Cardiac Sampling and Pressure, Left Heart, Percutaneous Approach (ICD-10-PCS; 2017-02-04)
PROC: B2111ZZ Fluoroscopy of Multiple Coronary Arteries using Low Osmolar Contrast (ICD-10-PCS; 2017-02-04)
PROC: B2151ZZ Fluoroscopy of Left Heart using Low Osmolar Contrast (ICD-10-PCS; 2017-02-04)
PROC: 047E3DZ Dilation of Right Internal Iliac Artery with Intraluminal Device, Percutaneous Approach (ICD-10-PCS; 2017-02-06)
PROC: B41G1ZZ Fluoroscopy of Left Lower Extremity Arteries using Low Osmolar Contrast (ICD-10-PCS; 2017-02-06)
PROC: B41F1ZZ Fluoroscopy of Right Lower Extremity Arteries using Low Osmolar Contrast (ICD-10-PCS; 2017-02-06)
PROC: 047F3DZ Dilation of Left Internal Iliac Artery with Intraluminal Device, Percutaneous Approach (ICD-10-PCS; principal; 2017-02-06 10:00)
DX: I24.9 Acute ischemic heart disease, unspecified (principal); M62.82 Rhabdomyolysis; I70.223 Atherosclerosis of native arteries of extremities with rest pain, bilateral legs; Z68.41 Body mass index [BMI] 40.0-44.9, adult; E66.9 Obesity, unspecified; F17.210 Nicotine dependence, cigarettes, uncomplicated; E86.0 Dehydration; I10 Essential (primary) hypertension; J44.9 Chronic obstructive pulmonary disease, unspecified; E78.5 Hyperlipidemia, unspecified; I25.119 Atherosclerotic heart disease of native coronary artery with unspecified angina pectoris; G89.29 Other chronic pain; G47.00 Insomnia, unspecified; G47.33 Obstructive sleep apnea (adult) (pediatric); M54.2 Cervicalgia; R00.0 Tachycardia, unspecified; Z91.19 Patient's noncompliance with other medical treatment and regimen; Z79.82 Long term (current) use of aspirin
CPT/HCPCS: 37221; 37223; 71010; 75635; 75716; 80048; 80053; 82550; 82552; 83735; 83880; 84484; 85002; 85025; 85027; 85610; 85730; 93005; 93458; 96361; 96374; 99152; 99153; C1725; C1751; C1760; C1769; C1876; C1893; G0269; J0360; J1644; J2250; J2270; J3010; J7030; J7040; Q9967